=== PATIENT | female | born 1990 | race Caucasian/White ===

== ENCOUNTER 2020-06-07 06:53 | Outpatient (REF) | payer OTHER, SELFPAY ==
[2020-06-07 08:33] LABS: Creatinine Urine 51.49 mg/dL; Microalbumin Urine < 5.0 mg/L
[2020-06-07 09:14] LABS: Anion Gap 13 (12-20); Blood Urea Nitrogen 8 mg/dL (9-16); Calcium 8.5 mg/dL (8.4-10.2); Carbon Dioxide 26 mmol/L (22-29); Chloride 103 mmol/L (96-108); Cholesterol 143 mg/dL; Estimated Glomerular Filt Rate > 60; Glucose Fasting 103 mg/dL (60-99); HDL Cholesterol 68 mg/dL; LDL Cholesterol Calculated 66 mg/dl; Potassium 4.7 mmol/l (3.3-5.1); Sodium 137 mmol/L (135-145); Triglycerides 48 mg/dL
== END 2020-06-07 06:54 | disposition home or self-care (01) ==
LOC: HO.LAB 06:53
PROVIDERS: PCP Physician Assistant; Visit Provider Nurse Practitioner Gerontology
DX: E10.9 Type 1 diabetes mellitus without complications (principal)
CPT/HCPCS: 80048; 80061; 82043

== ENCOUNTER → 2020-06-09 11:37 | Outpatient (BNVA) | payer OTHER, SELFPAY | PROVIDERS: PCP Physician Assistant; Referring Provider Physician Assistant; Visit Provider Nurse Practitioner Gerontology | DX: Z76.89 Persons encountering health services in other specified circumstances (principal) ==

== ENCOUNTER → 2020-06-30 11:44 | Outpatient (BNVA) | payer OTHER, SELFPAY | PROVIDERS: PCP Physician Assistant; Referring Provider Physician Assistant; Visit Provider Dietitian, Registered | DX: Z76.89 Persons encountering health services in other specified circumstances (principal) ==

== ENCOUNTER 2020-08-08 14:09 | Outpatient (REF) | payer OTHER, SELFPAY ==
[2020-08-09 09:33] LABS: BV Int Neg Control Negative (Negative); BV Int Pos Control Positive (Positive)
[2020-08-10 01:22] LABS: C. trachomatis RNA TMA NOT DETECTED (NOT DETECTED); N. gonorrhoeae RNA TMA NOT DETECTED (NOT DETECTED)
== END 2020-08-08 14:10 | disposition home or self-care (01) ==
LOC: HO.LAB 14:09
PROVIDERS: PCP Physician Assistant; Visit Provider Advanced Practice Midwife
DX: Z12.4 Encounter for screening for malignant neoplasm of cervix (principal); E10.43 Type 1 diabetes mellitus with diabetic autonomic (poly)neuropathy; E10.65 Type 1 diabetes mellitus with hyperglycemia; K31.84 Gastroparesis
CPT/HCPCS: 36415; 87480; 87491; 87510; 87591; 87660; 88141; 88142

== ENCOUNTER → 2020-11-22 13:22 | Outpatient (BNVA) | payer OTHER, SELFPAY | PROVIDERS: PCP Physician Assistant; Visit Provider Nurse Practitioner Gerontology ==

== ENCOUNTER → 2020-11-23 14:03 | Outpatient (BNVA) | payer OTHER, SELFPAY | PROVIDERS: PCP Physician Assistant; Visit Provider Nurse Practitioner Gerontology ==

== ENCOUNTER 2020-12-27 07:38 | Outpatient (REF) | payer OTHER, SELFPAY ==
[2020-12-27 08:23] LABS: Hemoglobin 11.2 g/dl (12.0-16.0); Mean Corpuscular HGB Conc 31.1 g/dl (31.0-35.0); Mean Corpuscular Hemoglobin 25.5 pg (27.0-33.0); Mean Platelet Volume 10.6 fL (9.4-12.3); Platelet Count 394 X10*3/uL (160-400); Red Blood Count 4.39 X10*6/uL (4.20-5.50); Red Cell Distribution Width 15.9 % (11.0-16.0); White Blood Count 5.5 X10*3/uL (4.8-10.8)
[2020-12-27 08:33] LABS: Estimated Average Glucose 220 mg/dL; Hemoglobin A1c % 9.3 %
[2020-12-27 08:57] LABS: Alanine Aminotransferase 20 U/L (0-31); Albumin Level 4.4 g/dL (3.5-5.0); Alkaline Phosphatase 66 U/L (39-117); Anion Gap 11 (12-20); Aspartate Amino Transferase 21 U/L (5-31); Bilirubin Total 0.8 mg/dL (0.0-1.0); Blood Urea Nitrogen 10 mg/dL (9-16); Calcium 9.8 mg/dL (8.4-10.2); Carbon Dioxide 27 mmol/L (22-29); Chloride 105 mmol/L (96-108); Cholesterol 178 mg/dL; Estimated Glomerular Filt Rate > 60; Glucose Fasting 116 mg/dL (60-99); HDL Cholesterol 90 mg/dL; LDL Cholesterol Calculated 78 mg/dl; Potassium 4.1 mmol/L (3.3-5.1); Sodium 139 mmol/L (135-145); Total Protein 6.7 g/dL (6.5-8.0); Triglycerides 53 mg/dL
[2020-12-27 08:58] LABS: TSH reflex Free T4 0.82 uIU/mL (0.32-4.0)
[2020-12-27 09:36] LABS: Creatinine Urine 67.69 mg/dL; Microalbumin Urine < 5.0 mg/L
== END 2020-12-27 07:39 | disposition home or self-care (01) ==
LOC: HO.LAB 07:38
PROVIDERS: Absent Provider Physician Assistant; PCP Physician Assistant; Visit Provider Nurse Practitioner Gerontology
DX: E10.43 Type 1 diabetes mellitus with diabetic autonomic (poly)neuropathy (principal); E10.65 Type 1 diabetes mellitus with hyperglycemia; K31.84 Gastroparesis; I10 Essential (primary) hypertension
CPT/HCPCS: 36415; 80053; 80061; 82043; 83036; 84443; 85027

== ENCOUNTER → 2021-01-03 10:33 | Outpatient (BNVA) | payer OTHER, SELFPAY | PROVIDERS: PCP Physician Assistant; Visit Provider Nurse Practitioner Gerontology | DX: E10.65 Type 1 diabetes mellitus with hyperglycemia (principal); E10.43 Type 1 diabetes mellitus with diabetic autonomic (poly)neuropathy; K31.84 Gastroparesis | CPT/HCPCS: 82947; 99212 ==

== ENCOUNTER → 2021-03-22 14:38 | Outpatient (BNVA) | payer OTHER, SELFPAY | PROVIDERS: PCP Physician Assistant; Visit Provider Nurse Practitioner Gerontology ==

== ENCOUNTER → 2021-05-10 14:30 | Outpatient (BNVA) | payer OTHER, SELFPAY | PROVIDERS: PCP Physician Assistant; Visit Provider Nurse Practitioner Gerontology | DX: E10.65 Type 1 diabetes mellitus with hyperglycemia (principal); E10.43 Type 1 diabetes mellitus with diabetic autonomic (poly)neuropathy; K31.84 Gastroparesis | CPT/HCPCS: 82947; 99212 ==

== ENCOUNTER 2021-06-08 15:37 | Outpatient (REF) | payer OTHER, SELFPAY ==
[2021-06-08 16:47] LABS: Anion Gap 12 (12-20); Blood Urea Nitrogen 8 mg/dL (9-16); C Reactive Protein 0.03 mg/dL (< or = 0.50); Calcium 9.5 mg/dL (8.4-10.2); Carbon Dioxide 23 mmol/L (22-29); Chloride 103 mmol/L (96-108); Estimated Glomerular Filt Rate > 60; Glucose Random 229 mg/dL (60-115); Potassium 4.3 mmol/L (3.3-5.1); Sodium 134 mmol/L (135-145)
[2021-06-08 17:18] LABS: Erythrocyte Sedimentation Rate 3 MM/HR (0-20)
[2021-06-09 10:31] LABS: Lyme Abs Screen <0.90 index
== END 2021-06-08 15:38 | disposition home or self-care (01) ==
LOC: HO.LAB 15:37
PROVIDERS: PCP Physician Assistant; Visit Provider Physician Assistant
DX: M62.81 Muscle weakness (generalized) (principal); W57.XXXA Bitten or stung by nonvenomous insect and other nonvenomous arthropods, initial encounter
CPT/HCPCS: 36415; 80048; 82550; 85652; 86140; 86617; 86618

== ENCOUNTER → 2021-08-22 15:01 | Outpatient (BNVA) | payer OTHER, SELFPAY | PROVIDERS: Visit Provider Advanced Practice Midwife | DX: Z32.01 Encounter for pregnancy test, result positive (principal); O24.019 Pre-existing type 1 diabetes mellitus, in pregnancy, unspecified trimester; E10.43 Type 1 diabetes mellitus with diabetic autonomic (poly)neuropathy; K31.84 Gastroparesis; E10.42 Type 1 diabetes mellitus with diabetic polyneuropathy; E10.65 Type 1 diabetes mellitus with hyperglycemia; Z3A.00 Weeks of gestation of pregnancy not specified; Z79.4 Long term (current) use of insulin; Z96.41 Presence of insulin pump (external) (internal) | CPT/HCPCS: 81025; 99212 ==

== ENCOUNTER 2021-09-01 13:38 | Outpatient (REF) | payer OTHER, SELFPAY ==
--- NOTE | ~2021-09-01 | US_ITS ---
EXAMINATION: OBSTETRICAL ULTRASOUND, FIRST TRIMESTER HISTORY: 31-year-old with unknown LMP Type 1 diabetes COMPARISON: None TECHNIQUE: Real time transabdominal imaging with color and M-mode Doppler. FINDINGS: A single, live IUP CRL of 17 mm c/w 8.2wks is noted. Heart Rate: 174 beats per minute. Both maternal ovaries are seen and appear normal. GESTATIONAL AGE: 1. GA from LMP: N/A wks 2. GA from AUA: 8.2 wks ESTIMATED DATE OF DELIVERY: 1. MINOR from LMP: N/A 2. MINOR from AUA: 04/11/2022 US/US OB <= 14 weeks fetus IMPRESSION: 1. A single live IUP 2. CRL consistent with 8.2 weeks with MINOR of 04/11/2022 3. Normal ovaries
== END 2021-09-01 13:39 | disposition home or self-care (01) ==
LOC: HO.US 13:38
PROVIDERS: PCP Physician Assistant; Visit Provider Advanced Practice Midwife
DX: O24.011 Pre-existing type 1 diabetes mellitus, in pregnancy, first trimester (principal); E10.43 Type 1 diabetes mellitus with diabetic autonomic (poly)neuropathy; E10.65 Type 1 diabetes mellitus with hyperglycemia; Z3A.01 Less than 8 weeks gestation of pregnancy
CPT/HCPCS: 76801

== ENCOUNTER → 2021-09-04 11:33 | Outpatient (BNVA) | payer OTHER, SELFPAY | PROVIDERS: Visit Provider Nurse Practitioner Gerontology | DX: E10.65 Type 1 diabetes mellitus with hyperglycemia (principal); E10.43 Type 1 diabetes mellitus with diabetic autonomic (poly)neuropathy; K31.84 Gastroparesis; O24.011 Pre-existing type 1 diabetes mellitus, in pregnancy, first trimester; Z79.4 Long term (current) use of insulin; Z96.41 Presence of insulin pump (external) (internal) | CPT/HCPCS: 82947; 83036; 99212 ==

== ENCOUNTER → 2021-09-07 11:13 | Outpatient (BNVA) | payer OTHER, SELFPAY | PROVIDERS: Visit Provider Advanced Practice Midwife ==

== ENCOUNTER 2023-10-23 14:37 | Outpatient (AMB) | payer OTHER, SELFPAY ==
[2023-10-23 14:40] VITALS: BP 112/68; PULSE 88; BMI 20.4
--- NOTE | 2023-10-23 14:40 | A.OFFPC_ITS ---
Vital Signs 10/23/23 14:40 Height 5 ft 9 in Weight 138 lb BMI 20.4 BP 112/68 Blood Pressure Location Lt brachial Position Sitting Pulse 88 Pulse Source Pulse Oximeter Oxygen Delivery Method Room Air Intake Visit Reasons: annual exam Intake Note: Patient is here today for a physical. 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 Accompanied by: Self / Same As Patient Is last menstrual period known: Yes Last menstrual period: 04/22/23 Patient : Yes (23 week gestation ) Allergies latex Allergy (Severe, Verified 10/23/23 15:05) Anaphylaxis - latex gloves hazelnut Allergy (Unknown, Verified 10/23/23 15:05) Anaphylaxis metoclopramide [From Reglan] Allergy (Unknown, Verified 10/23/23 15:05) Dystonia Sulfa (Sulfonamide Antibiotics) Allergy (Unknown, Verified 10/23/23 15:05) anaphylaxis Medication List - Last Reconciled 10/23/23 by Jame Da Silva PA-C albuterol sulfate 90 mcg/actuation (Ventolin HFA) 2 puffs PO Q6H 30 days blood pressure test kit-large As directed clonidine HCl 0.2 mg PO BID 90 days epinephrine (EpiPen 2-Ian) 0.3 mg (0.3 mL) IM Q10M PRN 30 days ferrous gluconate mg PO Humalog Min KwikPen U-100 (insulin lispro) up to 10 units subcut five times a day; 30 days NS insulin aspart U-100 (Novolog U-100 Insulin aspart) up to 125 units daily via pumpsubcut daily; 30 days insulin syringe-needle U-100 As directed multivitamin (Daily Multi-Vitamin tablet) 1 tab PO DAILY pen needle, diabetic (BD Ultra-Fine [employer] Needle) 1 ea subcut up to 7 times a day; 30 days pyridoxine (vitamin B6) (Vitamin B-6) 25 mg PO TID zolpidem 10 mg PO BEDTIME 30 days Tobacco use date assessed: 10/23/23 HPI annual exam HPI Details Patient is a 33-year-old female here today for an annual physical.? Patient has a past medical history significant for type 1 diabetes, generalized anxiety disorder, ADD. She currently again and is due in February of 2024, followed by [facility] Generalized anxiety disorder: Patient reports her anxiety is not well controlled. Previous on clonazepam does able to wean herself off. She is now speaking with a mental health therapist she really likes and was given the diagnosis of major depressive disorder, generalized anxiety and ADD to which she believes is a constant cause of her anxiety. She is now speaking with a mental health therapist and has a new psychiatrist whom has been working with her. They have started Vyvanse for her ADD which has helped her tremendously though is now off of this medication due to . .. Type 1 diabetes complicated by gastroparesis: Now well controlled, today's A1c is 6.4. Seems her diabetes stabilizes when she is ? . Continues to follow [facility] endocrinology, has had history of hospital admissions for DKA . Her diabetes is complicated by gastroparesis which often leaves her with nausea vomiting and inability to gain much weight. She does attribute some of her gastroparesis to her mental health disorder as well. Did have a previous gastric stimulator in place. Vaccines: Up-to-date with tetanus vaccine, pneumonia vaccine. [facility] Medical History (Updated 10/24/23 @ 07:41 by Jame Da Silva PA-C) depression Cervical cancer screening Type 2 diabetes mellitus with diabetic neuropathy, unspecified Anxiety Depression Fibromyalgia Asthma Surgical History History of tooth extraction History of exploratory laparotomy History of gastric surgery History of D&C History of appendectomy Family History Father No problems noted. Mother Heart problem Brother Autism Maternal Aunt Breast cancer Other Mental health disorder Social History Household Members: Significant Other Housing: House Alcohol intake: never Patient Tobacco Use Status: Former Tobacco user Tobacco use type: Cigarette e-Cigarette/Vaping Use: Never Used Second Hand Smoke Exposure: Yes Substance Use Type: Marijuana service: No Current occupational status: unemployed and disabled Gender identity: Female Cognitive needs: No Hearing needs: No Vision needs: Yes Female Reproductive History Menstrual Age of Menarche: 16 Date of last menstrual period: 04/22/23 Questionnaire PHQ-9 Over the last 2 weeks, how often have you been bothered by any of the following problems? 1. Little interest or pleasure in doing things: more than half the days 2. Feeling down, depressed, or hopeless: more than half the days 3. Trouble falling or staying asleep, or sleeping too much: nearly every day 4. Feeling tired or having little energy: nearly every day 5. Poor appetite or overeating: nearly every day 6. Feeling bad about yourself - or that you are a failure or have let yourself or your family down: more than half the days 7. Trouble concentrating on things, such as reading the newspaper or watching television: nearly every day 8. Moving or speaking so slowly that other people could have noticed. Or the opposite - being so fidgety or restless that you have been moving around a lot more than usual: more than half the days 9. Thoughts that you would be better off or of hurting yourself in some way: not at all Total score: 20 Depression Screening Interpretation: Positive Depression Screening Follow-up: Existing condition Depression Screening Done: Yes 09774 - PHQ-9 Billing: Yes Source: Developed by Drs. Evans Bose, Maye Byrd, Catracho Sullivan and colleagues, with an educational renny from [employer]. Thrive Questionnaire Date Thrive assessed: 10/23/23 I am a: Patient What is your living situation today?: I have a steady place to live Within the past 12 months, did the food you bought not last and you didn't have the money to get more?: Never true Within the past 12 months, did you worry whether your food would run out before you got money to buy more?: Never true Do you have trouble paying for medicines?: No Do you have trouble getting transportation to medical appointments?: No Do you have trouble paying your heating and electricity bill?: No Do you have trouble taking care of your child, family member or friend?: No Do you have trouble with day-to-day activities such as bathing, preparing meals, shopping, managing finances, etc.?: No Are you currently unemployed and looking for a job?: No Are you interested in more education?: No Please select the resources that you would like help with: None Currently or been in a relationship where the following occur: no concerns reported THRIVE Score: 0 AUDIT C Alcohol Use Questionnaire (AUDIT-C) 1. How often do you have a drink containing alcohol?: Never 3. How often do you have six or more drinks on one occasion?: Never Total Score: 0 CLEMENT-7 AMB Questionnaire CLEMENT-7 Date CLEMENT - 7 assessed: 10/23/23 Feeling nervous, anxious, or on edge: 3 = Nearly every day Not being able to stop or control worryin = Nearly every day Worrying too much about different things: 3 = Nearly every day Trouble relaxin = Nearly every day Being so restless that it is hard to sit still: 3 = Nearly every day Becoming easily annoyed or irritable: 3 = Nearly every day Feeling afraid as if something awful might happen: 3 = Nearly every day Total CLEMENT-7 score (0-4 normal; 5-9 mild; 10-14 moderate; 15-21 severe): 21 Source: Developed by Drs. Evans Bose, Maye Byrd, Catracho Sullivan and colleagues, with an educational renny from [employer]. CLEMENT-7 Assessment Billing CLEMENT-7 Assessment Tool: CLEMENT-7 Assessment [id number] Review of Systems Const Denies body aches, Denies chills, Denies excessive sweating, Denies fatigue, Denies fever(s) and Denies headache(s) Eyes Denies blurry vision ENT Denies dysphagia, Denies vertigo, Denies dizziness, Denies headache(s), Denies hearing loss and Denies tinnitus Card Denies chest pain, Denies chest pain with activity, Denies syncope, Denies irregular heart rhythm and Denies dyspnea Resp Denies chest congestion, Denies cough, Denies hemoptysis, Denies dyspnea and Denies wheezing GI Denies abdominal pain, Denies melena, Denies hematochezia, Denies coffee ground emesis, Denies dysphagia, Denies diarrhea, Denies nausea and Denies vomiting Denies urinary frequency, Denies dysuria, Denies urinary hesitancy and Denies urinary urgency Musc Denies arthralgias, Denies limited range of motion, Denies muscle cramps and Denies muscle weakness Skin/Breast Denies rash and Denies skin ulcer Neuro Denies Abnormal speech present, Denies confusion, Denies vertigo, Denies dizziness, Denies syncope, Denies headache(s), Denies memory loss and Denies seizure-like activity Psych Denies anxiety, Denies confusion, Denies depression, Denies memory loss, Denies panic attacks and Denies paranoia Endo Denies excessive sweating, Denies fatigue, Denies flushing, Denies polydipsia and Denies polyuria Aller/Immun Denies wheezing Physical exam (Primary Care) Vital Signs: Last Vital Signs Pulse 88 10/23/23 14:40 BP 112/68 10/23/23 14:40 Oxygen Delivery Method Room Air 10/23/23 14:40 BMI result Body Mass Index 20.4 Tobacco/Smoking Status: Tobacco use Status Tobacco use date assessed 10/23/23 10/23/23 14:59 Patient Tobacco Use Status Former Tobacco user 10/23/23 14:42 Tobacco use type Cigarette 10/23/23 14:42 e-Cigarette/Vaping Use Never Used 10/23/23 14:42 PHQ-9: PHQ-9 Score PHQ-9: Total score 20 10/23/23 15:24 Depression Screening Interpretation: Positive Depression Screening Follow-up: Existing condition Thrive Assessment: Date of Thrive Assessment Date Thrive assessed 10/23/23 10/23/23 14:59 Currently or been in a relationship where the following occur: no concerns reported Const General: cooperative, comfortable, no acute distress, alert and awake; No confusion Orientation/consciousness: oriented to person, oriented to place, patient oriented x3 and No confusion HENMT Head: Yes normocephalic Ears: external ears normal and TM's normal bilaterally Face and sinus: No sinus tenderness Mouth: Normal oral and palatal mucosa present and tongue normal Teeth and gingiva: dentition normal and gingiva normal Throat: Yes posterior oropharynx normal, Yes tonsils normal and Yes uvula midline Eyes Conjunctivae: conjunctivae normal Sclerae: sclerae normal Pupils: Equal, round and reactive pupils present EOM: EOMs intact bilaterally Direct Ophthalmoscopy: No no photophobia Neck Neck: Yes no lymphadenopathy, No tender and Yes no JVD Thyroid: Thyroid normal Carotids: no bruits Chest Chest palpation & inspection: no tenderness Resp Effort & Inspection: normal respiratory effort, no audible wheezes, not labored and no stridor Auscultation: no crackles, no rales, no rhonchi and no wheezes Cardio Jugular venous distension: no JVD Rate: regular rate, not bradycardic and not tachycardic Rhythm: regular rhythm Bruits: no carotid bruits Peripheral pulses: Peripheral pulses 2+ throughout GI Inspection: Yes normal to inspection, No abdominal wall ecchymosis and No visible herniation Palpation (GI): Soft to palpation, nontender, no guarding, not rigid and No hepatosplenomegaly present Auscultation: normoactive bowel sounds General: Yes no CVA tenderness Back/Spine/Pelvis Back: no CVA tenderness and No back tenderness Cervical Spine: cervical ROM normal Thoracic/Lumbar Spine: thoracic and lumbar spine normal to inspection, straight leg raise negative bilaterally, No thoraco-lumbar ROM limited and No lumbar spinal tenderness Skin Lesions: no lesions Rashes: no rashes Wounds: no wounds Neuro General: oriented to person, oriented to place, patient oriented x3, CN's II-XI intact bilaterally and No confusion Cranial nerves: Yes Equal, round and reactive pupils present and Yes Normal accommodation reflex present Cognition (Neuro): normal cognition Speech: No Abnormal speech present Gait exam (Neuro): Normal gait present Motor exam (neuro): 5/5 motor strength present throughout Extrem Right upper extremity: full ROM; no cyanosis Left upper extremity: full ROM; no cyanosis Right lower extremity: no edema Left lower extremity: no edema Psych Appearance: grossly normal Mental Status: mental status grossly normal Affect: normal affect Attitude: cooperative Thought process: Normal thought process present Results AMB Hemoglobin A1c AMB Hemoglobin A1c 6.4 % Last Edit by ROMEO Mcfarlane on 10/23/23 15:24 Results Reviewed Results Reviewed: Laboratory Last Values Hgb A1c (Clinic) 6.4 % (4.0-6.0) H 10/23/23 15:04 Assessment and Plan Assessment & Plan (1) Annual physical exam: Code(s): Z00.00 - Encounter for general adult medical examination without abnormal findings (2) 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 Continues on insulin pump , today's A1c is 6.4 Interestingly enough Diabetes seems to be better controlled when . Her type 1 diabetes is complicated by gastroparesis and did have a previous gastric stimulator and though was not helpful. She does often get abdominal pain, bloating and nausea which causes her not to be able to gain weight. She eats small frequent meals to keep control of her glucose. (3) ADHD: Code(s): F90.9 - Attention-deficit hyperactivity disorder, unspecified type Qualifiers: Attention deficit-hyperactivity disorder type: combined inattentive- hyperactive Qualified Code(s): F90.2 - Attention-deficit hyperactivity disorder, combined type Plan: Now followed by mental health med provider and was started on Vyvanse which drastically reduced her lack of attention and focus and actually helped her with her depression and anxiety. Now off of stimulant ADHD medication due to . Plans on returning to Vyvanse after (4) CLEMENT (generalized anxiety disorder): Code(s): F41.1 - Generalized anxiety disorder Plan: Patient's CLEMENT-7 score positive for moderate to severe anxiety which has been a longstanding existing condition for her. She has a daily panic attack. She uses clonidine with good effect, was on clonazepam and many different SSRIs in the past without complete resolution of her anxiety. She is now speaking with a mental health therapist which is helping a lot. (5) Bipolar disorder: Code(s): F31.9 - Bipolar disorder, unspecified Qualifiers: Active/Remission status: in partial remission Most recent bipolar episode type: depressed Qualified Code(s): F31.75 - Bipolar disorder, in partial remission, most recent episode depressed Plan: Patient followed by mental therapist and a psychiatrist. Her mental health has been fairly stable. Has a good partner is currently and due in February of 2024 (6) Insomnia: Code(s): G47.00 - Insomnia, unspecified Qualifiers: Insomnia type: unspecified Qualified Code(s): G47.00 - Insomnia, unspecified Plan: Patient continues with the use of zolpidem 10 mg on a nightly basis with good effect on her sleep. 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
== END 2023-10-23 15:23 | disposition home or self-care (01) ==
PROVIDERS: PCP Physician Assistant; Visit Provider Physician Assistant
DX: E10.43 Type 1 diabetes mellitus with diabetic autonomic (poly)neuropathy (principal); K31.9 Disease of stomach and duodenum, unspecified
CPT/HCPCS: 83036; 99395

== ENCOUNTER 2024-03-30 14:20 | Outpatient (AMB) | payer OTHER, SELFPAY ==
--- NOTE | 2024-03-30 14:26 | A.OFFPC_ITS ---
Vital Signs 03/30/24 14:34 Height 5 ft 9 in Weight 123 lb 3 oz BMI 18.2 BP 120/72 Blood Pressure Location Lt brachial Position Sitting Pulse 90 Pulse Source Pulse Oximeter Pulse Oximetry (%) 100 Oxygen Delivery Method Room Air Intake Visit Reasons: f/u DMII Staff Cytotechnologist Required: No Accompanied by: Son Allergies latex Allergy (Severe, Verified 03/30/24 14:34) Anaphylaxis - latex gloves hazelnut Allergy (Unknown, Verified 03/30/24 14:34) Anaphylaxis metoclopramide [From Reglan] Allergy (Unknown, Verified 03/30/24 14:34) Dystonia Sulfa (Sulfonamide Antibiotics) Allergy (Unknown, Verified 03/30/24 14:34) anaphylaxis Medication List - Last Reconciled 03/30/24 by Jame Da Silva PA-C albuterol sulfate 90 mcg/actuation (Ventolin HFA) 2 puffs PO Q6H 30 days blood pressure test kit-large As directed clonidine HCl 0.2 mg PO BID 30 days epinephrine (EpiPen 2-Ian) 0.3 mg (0.3 mL) IM Q10M PRN 30 days ferrous gluconate mg PO Humalog Min KwikPen U-100 (insulin lispro) up to 10 units subcut five times a day; 30 days NS insulin aspart U-100 (Novolog U-100 Insulin aspart) up to 125 units daily via pumpsubcut daily; 30 days insulin syringe-needle U-100 As directed multivitamin (Daily Multi-Vitamin tablet) 1 tab PO DAILY pen needle, diabetic (BD Ultra-Fine [employer] Needle) 1 ea subcut up to 7 times a day; 30 days pyridoxine (vitamin B6) (Vitamin B-6) 25 mg PO TID zolpidem 10 mg PO BEDTIME 30 days Tobacco use date assessed: 10/23/23 Dental Screening Dental Screen Date: 03/30/24 Did you have a dental visit in the last 12 months?: Yes Did you have a dental problem in the last 6 months where you did not have access to dental care?: No Was dental information given to patient?: Patient has dentist HPI f/u DMII HPI Details Patient is a 33-year-old female here today for follow-up visit.? Patient has a past medical history significant for type 1 diabetes, generalized anxiety disorder, ADD. Recently had a new baby boy in December. There were some complications though currently doing fairly well. She is suffering with pretty bad depression. Has been on Zoloft in the past for depression though had aurelia with the medication. PLAN: Was on Vyvanse in the past for her ADD which did help her with her attention and focus on task. We did discuss that Vyvanse may help her up lift her mood and be more productive as a mother. She is not breast-feeding at this time. '' CHRONIC MEDICAL CONDITIONS-- > Generalized anxiety disorder: Patient reports her anxiety is not well controlled. Previous on clonazepam does able to wean herself off. She is now speaking with a mental health therapist she really likes and was given the diagnosis of major depressive disorder, generalized anxiety and ADD to which she believes is a constant cause of her anxiety. She is now speaking with a mental health therapist and has a new psychiatrist whom has been working with her. They have started Vyvanse for her ADD which has helped her tremendously. .. Type 1 diabetes complicated by gastroparesis: Patient's type 1 diabetes fairly well controlled, today's A1c is 7.1 Continues to follow [facility] endocrinology, has had history of hospital admissions for DKA . Her diabetes is complicated by gastroparesis which often leaves her with nausea vomiting and inability to gain much weight. She does at tribute some of her gastroparesis to her mental health disorder as well. Did have a previous gastric stimulator in place. [facility], [facility] Medical History (Updated 03/30/24 @ 16:39 by Jame Da Silva PA-C) depression Cervical cancer screening Type 2 diabetes mellitus with diabetic neuropathy, unspecified Anxiety Depression Fibromyalgia Asthma Surgical History History of tooth extraction History of exploratory laparotomy History of gastric surgery History of D&C History of appendectomy Family History Father No problems noted. Mother Heart problem Brother Autism Maternal Aunt Breast cancer Other Mental health disorder Social History Household Members: Significant Other Housing: House Alcohol intake: never Patient Tobacco Use Status: Former Tobacco user Tobacco use type: Cigarette e-Cigarette/Vaping Use: Never Used Second Hand Smoke Exposure: Yes Substance Use Type: Marijuana service: No Current occupational status: unemployed and disabled Gender identity: Female Cognitive needs: No Hearing needs: No Vision needs: Yes Female Reproductive History Menstrual Age of Menarche: 16 Questionnaire Thrive Questionnaire Date Thrive assessed: 10/23/23 CLEMENT-7 AMB Questionnaire CLEMENT-7 Date CLEMENT - 7 assessed: 10/23/23 Source: Developed by Drs. Evans Bose, Maye Byrd, Catracho Sullivan and colleagues, with an educational renny from [employer]. Review of Systems Const Denies headache(s) Eyes Denies loss of vision ENT Denies vertigo, Denies dizziness, Denies headache(s) and Denies sore throat Card Denies chest pain, Denies leg edema and Denies lightheadedness Resp Denies cough, Denies hemoptysis and Denies wheezing GI Denies abdominal pain, Denies melena, Denies constipation, Denies diarrhea and Denies vomiting Denies urinary frequency, Denies dysuria and Denies urinary urgency Musc Denies arthralgias, Denies joint swelling, Denies numbness and Denies tingling Neuro Denies Abnormal speech present, Denies behavioral changes, Denies vertigo, Denies dizziness, Denies headache(s), Denies loss of vision, Denies memory loss, Denies numbness and Denies tingling Psych Reports anxiety, Denies behavioral changes, Reports depression, Reports difficulty concentrating, Reports irritability, Denies memory loss and Denies panic attacks Zurdo/Lymph Denies easy bleeding and Denies easy bruising Aller/Immun Denies wheezing Physical exam (Primary Care) Vital Signs: Last Vital Signs Pulse 90 03/30/24 14:34 BP 120/72 03/30/24 14:34 Pulse Ox 100 03/30/24 14:34 Oxygen Delivery Method Room Air 03/30/24 14:34 BMI result Body Mass Index 18.2 Tobacco/Smoking Status: Tobacco use Status Tobacco use date assessed 10/23/23 03/30/24 14:26 Patient Tobacco Use Status Former Tobacco user 03/30/24 14:26 Tobacco use type Cigarette 03/30/24 14:26 e-Cigarette/Vaping Use Never Used 03/30/24 14:26 Thrive Assessment: Date of Thrive Assessment Date Thrive assessed 10/23/23 03/30/24 14:26 Const General: healthy appearing, no acute distress, alert and awake Nutritional Appearance: well nourished Orientation/consciousness: oriented to person, oriented to place and oriented to time HENMT Ears: TM's normal bilaterally General nose exam: Normal nasal mucous membranes and turbinates present Eyes Conjunctivae: conjunctivae normal Sclerae: sclerae normal Pupils: Equal, round and reactive pupils present Neck Neck: Yes no lymphadenopathy and Yes no JVD Thyroid: Thyroid normal Carotids: no bruits Resp Effort & Inspection: normal respiratory effort and not tachypneic Auscultation: no crackles, no rales, no rhonchi and no wheezes Cardio Rate: regular rate Rhythm: regular rhythm Heart sounds: no murmurs and normal S1 and S2 GI Palpation (GI): Soft to palpation, nontender, no hepatomegaly and no splenomegaly Auscultation: normal bowel sounds Skin General skin exam: no rashes or lesions noted and dry skin Neuro General: oriented to person, oriented to place and oriented to time Cranial nerves: Yes Equal, round and reactive pupils present Speech: No Abnormal speech present Gait exam (Neuro): Normal gait present Motor exam (neuro): no tremor noted Extrem Right upper extremity: full ROM Left upper extremity: full ROM Right lower extremity: full ROM; no edema Left lower extremity: full ROM; no edema Psych Mental Status: mental status grossly normal Speech and movement: Normal speech and movement present Affect: normal affect Attitude: cooperative Thought process: Normal thought process present Results AMB Hemoglobin A1c AMB Hemoglobin A1c 7.1 % Last Edit by ROMEO Mcfarlane on 03/30/24 14:37 Results Reviewed Results Reviewed: Laboratory Last Values Hgb A1c (Clinic) 7.1 % (4.0-6.0) H 03/30/24 14:26 Assessment and Plan Assessment & Plan (1) depression: Code(s): F53.0 - depression Plan: Patient reports having some pretty severe depression over the last few weeks. She is speaking with a mental health therapist on a weekly basis. Her mental health med provider is out on maternity leave as well. Rochelle Did not do well with SSRIs as she did become somewhat manic on them. Of note she did quite well with Vyvanse for her ADD which may up lift her mood and she is willing to restart this medication for he ADD. 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 Continues on insulin pump , today's A1c is 7.1 . (3) ADHD: Code(s): F90.9 - Attention-deficit hyperactivity disorder, unspecified type Qualifiers: Attention deficit-hyperactivity disorder type: combined inattentive- hyperactive Qualified Code(s): F90.2 - Attention-deficit hyperactivity disorder, combined type Plan: As above Orders: Orders AMB Hemoglobin A1c Today E10.43 - Type 1 diabetes mellitus with diabetic autonomic (poly)neuropathy, K31.9 - Disease of stomach and duodenum, unspecified Complete Blood Count no Diff Today E10.43 - Type 1 diabetes mellitus with diabetic autonomic (poly)neuropathy, K31.9 - Disease of stomach and duodenum, unspecified Lipid Panel Today E10.43 - Type 1 diabetes mellitus with diabetic autonomic (poly)neuropathy, K31.9 - Disease of stomach and duodenum, unspecified Comprehensive Zahl. Panel Fast Today E10.43 - Type 1 diabetes mellitus with diabetic autonomic (poly)neuropathy, K31.9 - Disease of stomach and duodenum, unspecified Microalbumin, Random (w Creat) Today E10.43 - Type 1 diabetes mellitus with diabetic autonomic (poly)neuropathy, K31.9 - Disease of stomach and duodenum, unspecified Medications: New lisdexamfetamine (Vyvanse) Partial Fill upon patient request. 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
[2024-03-30 14:34] VITALS: BP 120/72; PULSE 90; O2SAT 100; BMI 18.2
== END 2024-03-30 15:01 | disposition home or self-care (01) ==
PROVIDERS: PCP Physician Assistant; Visit Provider Physician Assistant
DX: E10.43 Type 1 diabetes mellitus with diabetic autonomic (poly)neuropathy (principal); F53.0 Postpartum depression; K31.9 Disease of stomach and duodenum, unspecified; F90.2 Attention-deficit hyperactivity disorder, combined type
CPT/HCPCS: 83036; 99214

== ENCOUNTER 2024-06-02 14:36 | Outpatient (AMB) | payer OTHER, SELFPAY ==
[2024-06-02 14:43] VITALS: BP 122/70; PULSE 80; O2SAT 99; BMI 18.2
--- NOTE | 2024-06-02 14:43 | A.OFFPC_ITS ---
Vital Signs 06/02/24 14:43 Height 5 ft 9 in Weight 123 lb 6 oz BMI 18.2 BP 122/70 Blood Pressure Location Lt brachial Position Sitting Pulse 80 Pulse Source Pulse Oximeter Pulse Oximetry (%) 99 Oxygen Delivery Method Room Air Intake Visit Reasons: f/u ADHD Social Work Supervisor Required: No Accompanied by: Self / Same As Patient Allergies latex Allergy (Severe, Verified 06/02/24 14:49) Anaphylaxis - latex gloves hazelnut Allergy (Unknown, Verified 06/02/24 14:49) Anaphylaxis metoclopramide [From Reglan] Allergy (Unknown, Verified 06/02/24 14:49) Dystonia Sulfa (Sulfonamide Antibiotics) Allergy (Unknown, Verified 06/02/24 14:49) anaphylaxis Medication List - Last Reconciled 06/02/24 by Jame Da Silva PA-C albuterol sulfate 90 mcg/actuation (Ventolin HFA) 2 puffs PO Q6H 30 days blood pressure test kit-large As directed clonidine HCl 0.2 mg PO BID 30 days epinephrine (EpiPen 2-Ian) 0.3 mg (0.3 mL) IM Q10M PRN 30 days ferrous gluconate mg PO Humalog Min KwikPen U-100 (insulin lispro) up to 10 units subcut five times a day; 30 days NS insulin aspart U-100 (Novolog U-100 Insulin aspart) up to 125 units daily via pumpsubcut daily; 30 days insulin syringe-needle U-100 As directed lisdexamfetamine (Vyvanse) 20 mg PO DAILY 30 days multivitamin (Daily Multi-Vitamin tablet) 1 tab PO DAILY pen needle, diabetic (BD Ultra-Fine [employer] Needle) 1 ea subcut up to 7 times a day; 30 days pyridoxine (vitamin B6) (Vitamin B-6) 25 mg PO TID zolpidem 10 mg PO BEDTIME 30 days Tobacco use date assessed: 10/23/23 Dental Screening Dental Screen Date: 03/30/24 HPI f/u ADHD HPI Details Patient is a 33-year-old female here today for follow-up on her ADHD and depression. She recently had a new baby boy and was suffering with anxiety. She also was having a lot of difficulty with her attention and focus on daily living tasks. She most recently restarted on Vyvanse 20mg which has significantly helped her with her attention and focus and her mood. She will be reestablishing care with her psychiatrist next month as her psychiatrist his coming back from maternity leave. She reports her GI symptoms have worsened over the last month. She had a gastroparesis episode where she was sick for few days and ever since then it has not been the same. She does have a gastric stimulator and has been evaluated by her GI surgeon to which she reports they have her gastric stimulator on setting low and which should last the next 7-10 years. She does report use of ondansetron, promethazine have not been too effective. She does report Benadryl as effective though is difficult to keep down. We did discuss trying liquid Benadryl during her times of gastroparesis. Concern--> she does report a heart pounding feeling when exerting herself. We did discuss this may be due to her being a bit dehydrated. She does admit to not being able to drink water as it makes her feel that she has to vomit. She usually uses Gatorade. Also having some sharp upper chest pain during times of high anxiety. [facility] Medical History depression Cervical cancer screening Type 2 diabetes mellitus with diabetic neuropathy, unspecified Anxiety Depression Fibromyalgia Asthma Surgical History History of tooth extraction History of exploratory laparotomy History of gastric surgery History of D&C History of appendectomy Family History Father No problems noted. Mother Heart problem Brother Autism Maternal Aunt Breast cancer Other Mental health disorder Social History Household Members: Significant Other Housing: House Alcohol intake: never Patient Tobacco Use Status: Former Tobacco user Tobacco use type: Cigarette e-Cigarette/Vaping Use: Never Used Second Hand Smoke Exposure: Yes Substance Use Type: Marijuana service: No Current occupational status: unemployed and disabled Gender identity: Female Cognitive needs: No Hearing needs: No Vision needs: Yes Female Reproductive History Menstrual Age of Menarche: 16 Questionnaire Thrive Questionnaire Date Thrive assessed: 10/23/23 CLEMENT-7 AMB Questionnaire CLEMENT-7 Date CLEMENT - 7 assessed: 10/23/23 Source: Developed by Drs. Evans Bose, Maye Byrd, Catracho Sullivan and colleagues, with an educational renny from [employer]. Review of Systems Const Denies headache(s) Eyes Denies loss of vision ENT Denies vertigo, Denies dizziness, Denies headache(s) and Denies sore throat Card Reports chest pain, Denies leg edema, Denies lightheadedness and Reports palpitations Resp Denies cough, Denies hemoptysis and Denies wheezing GI Denies abdominal pain, Denies melena, Denies constipation, Reports GI cramping, Denies diarrhea, Reports nausea and Reports vomiting Denies urinary frequency, Denies dysuria and Denies urinary urgency Musc Denies arthralgias, Denies joint swelling, Denies numbness and Denies tingling Neuro Denies Abnormal speech present, Denies behavioral changes, Denies vertigo, Denies dizziness, Denies headache(s), Denies loss of vision, Denies memory loss, Denies numbness and Denies tingling Psych Denies anxiety, Denies behavioral changes, Denies depression, Denies memory loss and Denies panic attacks Endo Reports palpitations Zurdo/Lymph Denies easy bleeding and Denies easy bruising Aller/Immun Denies wheezing Physical exam (Primary Care) Vital Signs: Last Vital Signs Pulse 80 06/02/24 14:43 BP 122/70 06/02/24 14:43 Pulse Ox 99 06/02/24 14:43 Oxygen Delivery Method Room Air 06/02/24 14:43 BMI result Body Mass Index 18.2 Tobacco/Smoking Status: Tobacco use Status Tobacco use date assessed 10/23/23 06/02/24 14:43 Patient Tobacco Use Status Former Tobacco user 06/02/24 14:43 Tobacco use type Cigarette 06/02/24 14:43 e-Cigarette/Vaping Use Never Used 06/02/24 14:43 Thrive Assessment: Date of Thrive Assessment Date Thrive assessed 10/23/23 06/02/24 14:43 Const General: healthy appearing, no acute distress, alert and awake Nutritional Appearance: well nourished Orientation/consciousness: oriented to person, oriented to place and oriented to time HENMT Ears: TM's normal bilaterally General nose exam: Normal nasal mucous membranes and turbinates present Eyes Conjunctivae: conjunctivae normal Sclerae: sclerae normal Pupils: Equal, round and reactive pupils present Neck Neck: Yes no lymphadenopathy and Yes no JVD Thyroid: Thyroid normal Carotids: no bruits Resp Effort & Inspection: normal respiratory effort and not tachypneic Auscultation: no crackles, no rales, no rhonchi and no wheezes Cardio Rate: regular rate Rhythm: regular rhythm Heart sounds: no murmurs and normal S1 and S2 GI Palpation (GI): Soft to palpation, nontender, no hepatomegaly and no splenomegaly Auscultation: normal bowel sounds Skin General skin exam: no rashes or lesions noted and dry skin Neuro General: oriented to person, oriented to place and oriented to time Cranial nerves: Yes Equal, round and reactive pupils present Speech: No Abnormal speech present Gait exam (Neuro): Normal gait present Motor exam (neuro): no tremor noted Extrem Right upper extremity: full ROM Left upper extremity: full ROM Right lower extremity: full ROM; no edema Left lower extremity: full ROM; no edema Psych Mental Status: mental status grossly normal Speech and movement: Normal speech and movement present Affect: normal affect Attitude: cooperative Thought process: Normal thought process present Office Procedures Flu Questionnaire Does the patient have a severe egg allergy?: No Immunizations Fluarix Triv [id number] (PF) 45 mcg (15 mcg x 3)/0.5 mL IM syringe Performing Provider: Jame Da Silva PA-C [facility] [place] [facility] Documented (not given) by: ROMEO Mcfarlane on 06/02/24 14:48 Reason Not Given: Patient Refused Coding Level of Care Code Est Pt Level 4 (08089) Diagnoses Attention deficit hyperactivity disorder (ADHD), combined type F90.2 Attention deficit-hyperactivity disorder type: combined inattentive- hyperactive Gastroparesis K31.84 Assessment & Plan Assessment & Plan (1) ADHD: Code(s): F90.9 - Attention-deficit hyperactivity disorder, unspecified type Category: Medical Qualifiers: Attention deficit-hyperactivity disorder type: combined inattentive- hyperactive Qualified Code(s): F90.2 - Attention-deficit hyperactivity disorder, combined type Plan: As per HPI patient reports her ADHD has been fairly well controlled with Vyvanse. Will discuss up titrating dose with her psychiatrist (2) Gastroparesis: Code(s): K31.84 - Gastroparesis Category: Medical Plan: Rochelle reports having some gastroparesis episodes lately. Unclear what has been the cause. She will try liquid Benadryl to help her symptoms. Orders: Orders Comprehensive Met. Panel 06/02/24 E10.43 - Type 1 diabetes mellitus with diabetic autonomic (poly)neuropathy, K31.9 - Disease of stomach and duodenum, unspecified Influenza [id number] Immunization 06/02/24 Z23 - Encounter for immunization
== END 2024-06-02 15:05 | disposition home or self-care (01) ==
PROVIDERS: PCP Physician Assistant; Visit Provider Physician Assistant
DX: K31.84 Gastroparesis (principal); F90.2 Attention-deficit hyperactivity disorder, combined type

== ENCOUNTER → 2024-06-02 14:36 | Outpatient (BNVA) | payer OTHER, SELFPAY | PROVIDERS: PCP Physician Assistant; Visit Provider Physician Assistant | DX: F90.2 Attention-deficit hyperactivity disorder, combined type (principal); K31.84 Gastroparesis | CPT/HCPCS: 90471; 99212 ==

== ENCOUNTER 2024-09-01 14:06 | Outpatient (REF) | payer OTHER, SELFPAY ==
[2024-09-01 15:24] LABS: Hematocrit 38.9 % (37.0-47.0); Hemoglobin 12.9 g/dl (12.0-16.0); Mean Corpuscular HGB Conc 33.2 g/dl (31.0-35.0); Mean Corpuscular Hemoglobin 30.5 pg (27.0-33.0); Platelet Count 291 X10*3/uL (160-400); Red Blood Count 4.23 X10*6/uL (4.20-5.50); Red Cell Distribution Width 12.4 % (11.0-16.0); White Blood Count 6.6 X10*3/uL (4.8-10.8)
[2024-09-01 16:30] LABS: Creatinine Urine 42.51 mg/dL; Microalbumin Urine < 5.0 mg/L
[2024-09-01 17:18] LABS: Alanine Aminotransferase 17 U/L (0-31); Albumin Level 4.3 g/dL (3.5-5.0); Alkaline Phosphatase 77 U/L (39-117); Anion Gap 10 (12-20); Aspartate Amino Transferase 19 U/L (5-31); Bilirubin Total 0.5 mg/dL (0.0-1.0); Blood Urea Nitrogen 12 mg/dL (9-16); Calcium 9.2 mg/dL (8.4-10.2); Carbon Dioxide 25 mmol/L (22-29); Chloride 106 mmol/L (96-108); Estimated Glomerular Filt Rate > 60; Glucose Random 140 mg/dL (60-115); Potassium 3.9 mmol/L (3.3-5.1); Sodium 137 mmol/L (135-145); Total Protein 6.9 g/dL (6.5-8.0)
== END 2024-09-01 14:07 | disposition home or self-care (01) ==
LOC: HO.LAB 14:06
PROVIDERS: PCP Physician Assistant; Visit Provider Physician Assistant
DX: E10.43 Type 1 diabetes mellitus with diabetic autonomic (poly)neuropathy (principal); K31.9 Disease of stomach and duodenum, unspecified
CPT/HCPCS: 36415; 80053; 82043; 82570; 85027

== ENCOUNTER 2024-09-02 14:15 | Outpatient (AMB) | payer OTHER, SELFPAY ==
[2024-09-02 14:19] VITALS: BP 124/62; PULSE 81; O2SAT 98; BMI 17.1
--- NOTE | 2024-09-02 14:19 | A.OFFPC_ITS ---
Vital Signs 09/02/24 14:19 Height 5 ft 9 in Weight 116 lb BMI 17.1 BP 124/62 Blood Pressure Location Lt brachial Position Sitting Pulse 81 Pulse Source Pulse Oximeter Pulse Oximetry (%) 98 Oxygen Delivery Method Room Air Intake Visit Reasons: f/u DMII Intake Note: Patient states she has been having panic attacks all morning and can not get them to stop. Allergies latex Allergy (Severe, Verified 09/02/24 14:58) Anaphylaxis - latex gloves hazelnut Allergy (Unknown, Verified 09/02/24 14:58) Anaphylaxis metoclopramide [From Reglan] Allergy (Unknown, Verified 09/02/24 14:58) Dystonia Sulfa (Sulfonamide Antibiotics) Allergy (Unknown, Verified 09/02/24 14:58) anaphylaxis Medication List - Last Reconciled 09/02/24 by Jame Da Silva PA-C albuterol sulfate 90 mcg/actuation (Ventolin HFA) 2 puffs PO Q6H 30 days blood pressure test kit-large As directed clonidine HCl 0.2 mg PO BID 30 days dexmethylphenidate ER mg PO QAM epinephrine (EpiPen 2-Ian) 0.3 mg (0.3 mL) IM Q10M PRN 30 days ferrous gluconate mg PO Humalog Min KwikPen U-100 (insulin lispro) up to 10 units subcut five times a day; 30 days NS insulin aspart U-100 (Novolog U-100 Insulin aspart) up to 125 units daily via pumpsubcut daily; 30 days insulin syringe-needle U-100 As directed lamotrigine mg PO multivitamin (Daily Multi-Vitamin tablet) 1 tab PO DAILY pen needle, diabetic (BD Ultra-Fine Lucille Pen Needle) 1 ea subcut up to 7 times a day; 30 days pyridoxine (vitamin B6) (Vitamin B-6) 25 mg PO TID zolpidem 10 mg PO BEDTIME 30 days Tobacco use date assessed: 09/02/24 Dental Screening Dental Screen Date: 09/02/24 Did you have a dental visit in the last 12 months?: Yes Did you have a dental problem in the last 6 months where you did not have access to dental care?: No Was dental information given to patient?: Patient has dentist HPI f/u DMII HPI Details Patient is a 33-year-old female here today for follow-up on her ADHD and depression. ADHD: Has reestablish care with a psychiatrist whom has changed her Vyvanse to Focalin which has been helpful for her attention and focus. Type 1 diabetes: Has been fairly well controlled. Today's A1c is 7.0. She does have gastroparesis and often does have nausea and GI discomfort. She is pretty traumatized by her previous episodes of gastroparesis which triggers her anxiety to be heightened.She does have a gastric stimulator and has been evaluated by her GI surgeon to which she reports they have her gastric stimulator on setting low and which should last the next 7-10 years. She does report use of ondansetron, promethazine have not been too effective. She does report Benadryl as effective though is difficult to keep down. We did discuss trying liquid Benadryl during her times of gastroparesi She reports during her menses once a month her GI symptoms and anxiety elevate which causes her to be pretty disabled. She is interested in an as needed medication to help her in emergencies for her anxiety. ON LICENSE OF [facility] Medical History depression Cervical cancer screening Type 2 diabetes mellitus with diabetic neuropathy, unspecified Anxiety Depression Fibromyalgia Asthma Surgical History History of tooth extraction History of exploratory laparotomy History of gastric surgery History of D&C History of appendectomy Family History Father No problems noted. Mother Heart problem Brother Autism Maternal Aunt Breast cancer Other Mental health disorder Social History Household Members: Significant Other Housing: House Alcohol intake: never Patient Tobacco Use Status: Former Tobacco user Tobacco use type: Cigarette e-Cigarette/Vaping Use: Never Used Second Hand Smoke Exposure: Yes Substance Use Type: Marijuana service: No Current occupational status: unemployed and disabled Gender identity: Female Cognitive needs: No Hearing needs: No Vision needs: Yes Female Reproductive History Menstrual Age of Menarche: 16 Questionnaire PHQ-9 Over the last 2 weeks, how often have you been bothered by any of the following problems? 1. Little interest or pleasure in doing things: more than half the days 2. Feeling down, depressed, or hopeless: more than half the days 3. Trouble falling or staying asleep, or sleeping too much: nearly every day 4. Feeling tired or having little energy: nearly every day 5. Poor appetite or overeating: nearly every day 6. Feeling bad about yourself - or that you are a failure or have let yourself or your family down: more than half the days 7. Trouble concentrating on things, such as reading the newspaper or watching television: nearly every day 8. Moving or speaking so slowly that other people could have noticed. Or the opposite - being so fidgety or restless that you have been moving around a lot more than usual: more than half the days 9. Thoughts that you would be better off or of hurting yourself in some way: not at all Total score: 20 Depression Screening Interpretation: Positive Depression Screening Follow-up: Existing condition Depression Screening Done: Yes 99052 - PHQ-9 Billing: Yes Source: Developed by Drs. Evans Bose, Maye Byrd, Catracho Sullivan and colleagues, with an educational renny from [employer]. Thrive Questionnaire Date Thrive assessed: 09/02/24 I am a: Patient What is your living situation today?: I have a steady place to live Within the past 12 months, did the food you bought not last and you didn't have the money to get more?: Never true Within the past 12 months, did you worry whether your food would run out before you got money to buy more?: Never true Do you have trouble paying for medicines?: No Do you have trouble getting transportation to medical appointments?: No Do you have trouble paying your heating and electricity bill?: No Do you have trouble taking care of your child, family member or friend?: No Do you have trouble with day-to-day activities such as bathing, preparing meals, shopping, managing finances, etc.?: No Are you currently unemployed and looking for a job?: No Are you interested in more education?: No Currently or been in a relationship where the following occur: No concerns reported THRIVE Score: 0 AUDIT C Alcohol Use Questionnaire (AUDIT-C) 1. How often do you have a drink containing alcohol?: Never 3. How often do you have six or more drinks on one occasion?: Never Total Score: 0 CLEMENT-7 AMB Questionnaire CLEMENT-7 Date CLEMENT - 7 assessed: 09/02/24 Feeling nervous, anxious, or on edge: 1 = Several days Not being able to stop or control worryin = Several days Worrying too much about different things: 1 = Several days Trouble relaxin = Several days Being so restless that it is hard to sit still: 1 = Several days Becoming easily annoyed or irritable: 1 = Several days Feeling afraid as if something awful might happen: 1 = Several days Total CLEMENT-7 score (0-4 normal; 5-9 mild; 10-14 moderate; 15-21 severe): 7 Source: Developed by Drs. Evans Bose, Maye Byrd, Catracho Sullivan and colleagues, with an educational renny from [employer]. CLEMENT-7 Assessment Billing CLEMENT-7 Assessment Tool: CLEMENT-7 Assessment 17823 Review of Systems Const Denies headache(s) Eyes Denies loss of vision ENT Denies vertigo, Denies dizziness, Denies headache(s) and Denies sore throat Card Denies chest pain, Denies leg edema and Denies lightheadedness Resp Denies cough, Denies hemoptysis and Denies wheezing GI Denies abdominal pain, Denies melena, Denies constipation, Denies diarrhea and Denies vomiting Denies urinary frequency, Denies dysuria and Denies urinary urgency Musc Denies arthralgias, Denies joint swelling, Denies numbness and Denies tingling Neuro Denies Abnormal speech present, Denies behavioral changes, Denies vertigo, Den ies dizziness, Denies headache(s), Denies loss of vision, Denies memory loss, Denies numbness and Denies tingling Psych Denies anxiety, Denies behavioral changes, Denies depression, Denies memory loss and Denies panic attacks Zurdo/Lymph Denies easy bleeding and Denies easy bruising Aller/Immun Denies wheezing Physical exam (Primary Care) Vital Signs: Last Vital Signs Pulse 81 09/02/24 14:19 BP 124/62 09/02/24 14:19 Pulse Ox 98 09/02/24 14:19 Oxygen Delivery Method Room Air 09/02/24 14:19 BMI result Body Mass Index 17.1 Tobacco/Smoking Status: Tobacco use Status Tobacco use date assessed 09/02/24 09/02/24 14:21 Patient Tobacco Use Status Former Tobacco user 09/02/24 14:21 Tobacco use type Cigarette 09/02/24 14:21 e-Cigarette/Vaping Use Never Used 09/02/24 14:21 PHQ-9: PHQ-9 Score PHQ-9: Total score 20 09/02/24 15:09 Depression Screening Interpretation: Positive Depression Screening Follow-up: Existing condition Thrive Assessment: Date of Thrive Assessment Date Thrive assessed 09/02/24 09/02/24 14:21 Currently or been in a relationship where the following occur: No concerns reported Const General: healthy appearing, no acute distress, alert and awake Nutritional Appearance: well nourished Orientation/consciousness: oriented to person, oriented to place and oriented to time HENMT Ears: TM's normal bilaterally General nose exam: Normal nasal mucous membranes and turbinates present Eyes Conjunctivae: conjunctivae normal Sclerae: sclerae normal Pupils: Equal, round and reactive pupils present Neck Neck: Yes no lymphadenopathy and Yes no JVD Thyroid: Thyroid normal Carotids: no bruits Resp Effort & Inspection: normal respiratory effort and not tachypneic Auscultation: no crackles, no rales, no rhonchi and no wheezes Cardio Rate: regular rate Rhythm: regular rhythm Heart sounds: no murmurs and normal S1 and S2 GI Palpation (GI): Soft to palpation, nontender, no hepatomegaly and no splenomegaly Auscultation: normal bowel sounds Skin General skin exam: no rashes or lesions noted and dry skin Neuro General: oriented to person, oriented to place and oriented to time Cranial nerves: Yes Equal, round and reactive pupils present Speech: No Abnormal speech present Gait exam (Neuro): Normal gait present Motor exam (neuro): no tremor noted Extrem Right upper extremity: full ROM Left upper extremity: full ROM Right lower extremity: full ROM; no edema Left lower extremity: full ROM; no edema Psych Mental Status: mental status grossly normal Speech and movement: Normal speech and movement present Affect: normal affect Attitude: cooperative Thought process: Normal thought process present Results AMB Hemoglobin A1c AMB Hemoglobin A1c 7.0 % Last Edit by Lexii Serrato CMA on 09/02/24 15 :09 Results Reviewed Results Reviewed: Laboratory Last Values Hgb A1c (Clinic) 7.0 % (4.0-6.0) H 09/02/24 14:21 Coding Level of Care Code Est Pt Level 4 (35626) Diagnoses Type 1 diabetes mellitus with diabetic gastropathy E10.43; K31.9 PTSD (post-traumatic stress disorder) F43.10 Attention deficit hyperactivity disorder (ADHD), combined type F90.2 Attention deficit-hyperactivity disorder type: combined inattentive- hyperactive Primary hypertension I10 Hypertension type: primary hypertension Bipolar disorder, in partial remission, most recent episode depressed F31.75 Active/Remission status: in partial remission Most recent bipolar episode type: depressed MDD (major depressive disorder), recurrent episode, moderate F33.1 Additional Codes CLEMENT-7 Assessment Billing - CLEMENT-7 Assessment Tool: CLEMENT-7 Assessment 35465 ([id number]) PHQ-9 - 88429 - PHQ-9 Billing: Yes ([id number]) Assessment & Plan Assessment & Plan (1) 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 Today's A1c is 7.0. She continues to use a insulin pump and a Dexcom glucose meter. Goal A1c is to remain below 7.0 (2) PTSD (post-traumatic stress disorder): Code(s): F43.10 - Post-traumatic stress disorder, unspecified Category: Medical Plan: Patient's CLEMENT-7 score positive for severe anxiety which has been existing condition for her for awhile.. Patient having increasing anxiety symptoms during her times of menses. She has been in discussions with her community development worker about changing her control. She reports her anxiety is crippling to the point she needs to not moving lay down. She has used extra clonidine and Benadryl though has not been effective (3) ADHD: Code(s): F90.9 - Attention-deficit hyperactivity disorder, unspecified type Category: Medical Qualifiers: Attention deficit-hyperactivity disorder type: combined inattentive- hyperactive Qualified Code(s): F90.2 - Attention-deficit hyperactivity disorder, combined type Plan: Patient now followed by psychiatrist in her ADHD medication has been changed to Focalin which has been effective attention and focus. (4) HTN (hypertension): Code(s): I10 - Essential (primary) hypertension Category: Medical Qualifiers: Hypertension type: primary hypertension Qualified Code(s): I10 - Essential (primary) hypertension Plan: Patient's blood pressure acceptable today in office Her blood pressure has been well controlled with dietary in lifestyle modifications (5) Bipolar disorder: Code(s): F31.9 - Bipolar disorder, unspecified Category: Medical Qualifiers: Active/Remission status: in partial remission Most recent bipolar episode type: depressed Qualified Code(s): F31.75 - Bipolar disorder, in partial remission, most recent episode depressed Plan: Patient now followed by psychiatrist. She has been started on lamotrigine for mood stabilization (Lamictal). (6) MDD (major depressive disorder), recurrent episode, moderate: Code(s): F33.1 - Major depressive disorder, recurrent, moderate Category: Medical Plan: Patient's PHQ-9 score positive for depression which has been existing condition for her. She is speaking with a mental health therapist and a psychiatrist and continues on mental health medications that has been helpful. Orders: Orders AMB Hemoglobin A1c 09/02/24 Z13.9 - Encounter for screening, unspecified Medications: New lorazepam 0.5 mg PO DAILY PRN 7 tabs 0RF anxiety 7 days F43.10 - Post-traumatic stress disorder, unspecified Patient Instructions: Goal: A1c to remain below 7.0 Barriers: Adherence to physical activity and healthy eating habits.
== END 2024-09-02 15:21 | disposition home or self-care (01) ==
PROVIDERS: PCP Physician Assistant; Visit Provider Physician Assistant
DX: Z13.9 Encounter for screening, unspecified (principal)

== ENCOUNTER → 2024-09-02 14:15 | Outpatient (BNVA) | payer OTHER, SELFPAY | PROVIDERS: PCP Physician Assistant; Visit Provider Physician Assistant | DX: E10.43 Type 1 diabetes mellitus with diabetic autonomic (poly)neuropathy (principal); K31.9 Disease of stomach and duodenum, unspecified; F43.10 Post-traumatic stress disorder, unspecified; F90.2 Attention-deficit hyperactivity disorder, combined type; I10 Essential (primary) hypertension; F31.75 Bipolar disorder, in partial remission, most recent episode depressed | CPT/HCPCS: 83036; 96127; 99212 ==

== ENCOUNTER 2025-01-21 15:10 | Outpatient (AMB) | payer OTHER, SELFPAY ==
--- NOTE | 2025-01-21 15:13 | A.OFFPC_ITS ---
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 Required: No Accompanied by: Self / Same As Patient Allergies latex Allergy (Severe, Verified 01/21/25 15:27) Anaphylaxis - latex gloves hazelnut Allergy (Unknown, Verified 01/21/25 15:27) Anaphylaxis metoclopramide (From Reglan) Allergy (Unknown, Verified 01/21/25 15:27) Dystonia Sulfa (Sulfonamide Antibiotics) Allergy (Unknown, Verified 01/21/25 15:27) anaphylaxis Medication List - Last Reconciled 01/21/25 by Jame Da Silva PA-C albuterol sulfate 90 mcg/actuation (Ventolin HFA) 2 puffs PO Q6H 30 days blood pressure test kit-large As directed clonidine HCl 0.2 mg PO BID 30 days dexmethylphenidate ER mg PO QAM epinephrine (EpiPen 2-Ian) 0.3 mg (0.3 mL) IM Q10M PRN 30 days ferrous gluconate mg PO Humalog Min KwikPen U-100 (insulin lispro) up to 10 units subcut five times a day; 30 days NS insulin aspart U-100 (Novolog U-100 Insulin aspart) up to 125 units daily via pumpsubcut daily; 30 days insulin syringe-needle U-100 As directed lamotrigine mg PO lorazepam 0.5 mg PO DAILY PRN 2 days multivitamin (Daily Multi-Vitamin tablet) 1 tab PO DAILY pen needle, diabetic (BD Ultra-Fine [employer] Needle) 1 ea subcut up to 7 times a day; 30 days pyridoxine (vitamin B6) (Vitamin B-6) 25 mg PO TID zolpidem 10 mg PO BEDTIME 30 days Tobacco use date assessed: 01/21/25 Dental Screening Dental Screen Date: 09/02/24 HPI Annual Exam HPI Details Patient is a 34-year-old female ADHD: Has reestablish care with a psychiatrist( Dr. Iqbal) whom has changed her Vyvanse to Focalin which has been helpful for her attention and focus. Type 1 diabetes: Continues to follow endocrinology at [facility]. She is managed with a insulin pump.. Has been fairly well controlled. Most recent A1c is at 7.0.. She does have gastroparesis and often does have nausea and GI discomfort. She is pretty traumatized by her previous episodes of gastroparesis which triggers her anxiety to be heightened.She does have a gastric stimulator and has been evaluated by her GI surgeon to which she reports they have her gastric stimulator on setting low and which should last the next 7-10 years. She does report use of ondansetron, promethazine have not been too effective. She does report Benadryl as effective though is difficult to keep down. We did discuss trying liquid Benadryl during her times of gastroparesis .. Mood disorder: Continues to follow psychiatry and has been making some med adjustments for her mood disorder. She has suspected diagnosis of bipolar disorder. Recently started on Geodon that did help her mood though had side effects of brain fog. She reports during her menses once a month her GI symptoms and anxiety elevate which causes her to be pretty disabled. She is interested in an as needed medication to help her in emergencies for her anxiety. 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 Mother Heart problem Brother Autism Maternal Aunt Breast cancer Other Mental health disorder Social History (Updated 01/21/25 @ 15:26 by Jame Da Silva PA-C) Household Members: Significant Other Housing: House Alcohol intake: never Patient Tobacco Use Status: Former Tobacco user Tobacco use type: Smokeless Tobacco e-Cigarette/Vaping Use: Never Used Second Hand Smoke Exposure: Yes Substance Use Type: Marijuana service: No Current occupational status: unemployed and disabled Gender identity: Female Cognitive needs: No Hearing needs: No Vision needs: Yes Female Reproductive History Menstrual Age of Menarche: 16 Questionnaire PHQ-9 Over the last 2 weeks, how often have you been bothered by any of the following problems? 1. Little interest or pleasure in doing things: not at all 2. Feeling down, depressed, or hopeless: several days 3. Trouble falling or staying asleep, or sleeping too much: nearly every day 4. Feeling tired or having little energy: nearly every day 5. Poor appetite or overeating: nearly every day 6. Feeling bad about yourself - or that you are a failure or have let yourself or your family down: more than half the days 7. Trouble concentrating on things, such as reading the newspaper or watching television: nearly every day 8. Moving or speaking so slowly that other people could have noticed. Or the opposite - being so fidgety or restless that you have been moving around a lot more than usual: not at all 9. Thoughts that you would be better off or of hurting yourself in some way: not at all Total score: 15 Depression Screening Interpretation: Positive Depression Screening Follow-up: Existing condition Depression Screening Done: Yes 57763 - PHQ-9 Billing: Yes Source: Developed by Drs. Evans Bose, Maye Byrd, Catracho Sullivan and colleagues, with an educational renny from [employer]. Thrive Questionnaire Date Thrive assessed: 01/21/25 I am a: Patient What is your living situation today?: I have a steady place to live Within the past 12 months, did the food you bought not last and you didn't have the money to get more?: I choose not to answer this question Within the past 12 months, did you worry whether your food would run out before you got money to buy more?: I choose not to answer this question Do you have trouble paying for medicines?: I choose not to answer this question Do you have trouble getting transportation to medical appointments?: I choose not to answer this question Do you have trouble paying your heating and electricity bill?: I choose not to answer this question Do you have trouble taking care of your child, family member or friend?: I choose not to answer this question Do you have trouble with day-to-day activities such as bathing, preparing meals, shopping, managing finances, etc.?: I choose not to answer this question Are you currently unemployed and looking for a job?: I choose not to answer this question Are you interested in more education?: I choose not to answer this question Please select the resources that you would like help with: None Currently or been in a relationship where the following occur: I choose not to answer THRIVE Score: 0 AUDIT C Alcohol Use Questionnaire (AUDIT-C) 1. How often do you have a drink containing alcohol?: Never Total Score: 0 CLEMENT-7 AMB Questionnaire CLEMENT-7 Date CLEMENT - 7 assessed: 09/23/24 Feeling nervous, anxious, or on edge: 3 = Nearly every day Not being able to stop or control worryin = Nearly every day Worrying too much about different things: 3 = Nearly every day Trouble relaxin = Nearly every day Being so restless that it is hard to sit still: 3 = Nearly every day Becoming easily annoyed or irritable: 3 = Nearly every day Feeling afraid as if something awful might happen: 2 = More than half the days Total CLEMENT-7 score (0-4 normal; 5-9 mild; 10-14 moderate; 15-21 severe): 20 Source: Developed by Drs. Evans Bose, Maye Byrd, Catracho Sullivan and colleagues, with an educational renny from [employer]. CLEMENT-7 Assessment Billing CLEMENT-7 Assessment Tool: CLEMENT-7 Assessment 95604 Review of Systems Const Denies body aches, Denies chills, Denies excessive sweating, Denies fatigue, Denies fever(s) and Denies headache(s) Eyes Denies blurry vision ENT Denies dysphagia, Denies vertigo, Denies dizziness, Denies headache(s), Denies hearing loss and Denies tinnitus Card Denies chest pain, Denies chest pain with activity, Denies syncope, Denies irregular heart rhythm and Denies dyspnea Resp Denies chest congestion, Denies cough, Denies hemoptysis, Denies dyspnea and Denies wheezing GI Denies abdominal pain, Denies melena, Denies hematochezia, Denies coffee ground emesis, Denies dysphagia, Denies diarrhea, Denies nausea and Denies vomiting Denies urinary frequency, Denies dysuria, Denies urinary hesitancy and Denies urinary urgency Musc Denies arthralgias, Denies limited range of motion, Denies muscle cramps and Denies muscle weakness Skin/Breast Denies rash and Denies skin ulcer Neuro Denies Abnormal speech present, Denies confusion, Denies vertigo, Denies dizziness, Denies syncope, Denies headache(s), Denies memory loss and Denies seizure-like activity Psych Denies anxiety, Denies confusion, Denies depression, Denies memory loss, Denies panic attacks and Denies paranoia Endo Denies excessive sweating, Denies fatigue, Denies flushing, Denies polydipsia and Denies polyuria Aller/Immun Denies wheezing Physical exam (Primary Care) Vital Signs: Last Vital Signs Pulse 78 01/21/25 15:15 BP 116/68 01/21/25 15:15 Pulse Ox 98 01/21/25 15:15 BMI result Body Mass Index 17.2 Tobacco/Smoking Status: Tobacco use Status Tobacco use date assessed 09/02/24 09/02/24 14:21 Patient Tobacco Use Status Former Tobacco user 09/02/24 14:21 Tobacco use type Cigarette 09/02/24 14:21 e-Cigarette/Vaping Use Never Used 09/02/24 14:21 Depression Screening Interpretation: Positive Depression Screening Follow-up: Existing condition Thrive Assessment: Date of Thrive Assessment Date Thrive assessed 09/02/24 09/02/24 14:21 Currently or been in a relationship where the following occur: I choose not to answer Const General: cooperative, comfortable, no acute distress, alert and awake; No confusion Orientation/consciousness: oriented to person, oriented to place, patient oriented x3 and No confusion HENMT Head: Yes normocephalic Ears: external ears normal and TM's normal bilaterally Face and sinus: No sinus tenderness Mouth: Normal oral and palatal mucosa present and tongue normal Teeth and gingiva: dentition normal and gingiva normal Throat: Yes posterior oropharynx normal, Yes tonsils normal and Yes uvula midline Eyes Conjunctivae: conjunctivae normal Sclerae: sclerae normal Pupils: Equal, round and reactive pupils present EOM: EOMs intact bilaterally Direct Ophthalmoscopy: No no photophobia Neck Neck: Yes no lymphadenopathy, No tender and Yes no JVD Thyroid: Thyroid normal Carotids: no bruits Chest Chest palpation & inspection: no tenderness Resp Effort & Inspection: normal respiratory effort, no audible wheezes, not labored and no stridor Auscultation: no crackles, no rales, no rhonchi and no wheezes Cardio Jugular venous distension: no JVD Rate: regular rate, not bradycardic and not tachycardic Rhythm: regular rhythm Bruits: no carotid bruits Peripheral pulses: Peripheral pulses 2+ throughout GI Inspection: Yes normal to inspection, No abdominal wall ecchymosis and No visible herniation Palpation (GI): Soft to palpation, nontender, no guarding, not rigid and No hepatosplenomegaly present Auscultation: normoactive bowel sounds General: Yes no CVA tenderness Back/Spine/Pelvis Back: no CVA tenderness and No back tenderness Cervical Spine: cervical ROM normal Thoracic/Lumbar Spine: thoracic and lumbar spine normal to inspection, straight leg raise negative bilaterally, No thoraco-lumbar ROM limited and No lumbar spinal tenderness Skin Lesions: no lesions Rashes: no rashes Wounds: no wounds Neuro General: oriented to person, oriented to place, patient oriented x3, CN's II-XI intact bilaterally and No confusion Cranial nerves: Yes Equal, round and reactive pupils present and Yes Normal accommodation reflex present Cognition (Neuro): normal cognition Speech: No Abnormal speech present Gait exam (Neuro): Normal gait present Motor exam (neuro): 5/5 motor strength present throughout Extrem Right upper extremity: full ROM; no cyanosis Left upper extremity: full ROM; no cyanosis Right lower extremity: no edema Left lower extremity: no edema Psych Appearance: grossly normal Mental Status: mental status grossly normal Affect: normal affect Attitude: cooperative Thought process: Normal thought process present Coding Level of Care Code Est Pt Prev Care 18-39y(75657) Diagnoses Annual physical exam Z00.00 Type 1 diabetes mellitus with diabetic gastropathy E10.43; K31.9 PTSD (post-traumatic stress disorder) F43.10 Attention deficit hyperactivity disorder (ADHD), combined type F90.2 Attention deficit-hyperactivity disorder type: combined inattentive- hyperactive Primary hypertension I10 Hypertension type: primary hypertension Bipolar disorder, in partial remission, most recent episode depressed F31.75 Active/Remission status: in partial remission Most recent bipolar episode type: depressed MDD (major depressive disorder), recurrent episode, moderate F33.1 Additional Codes CLEMENT-7 Assessment Billing - CLEMENT-7 Assessment Tool: CLEMENT-7 Assessment [id number] ([id number]) PHQ-9 - 01025 - PHQ-9 Billing: Yes ([id number]) Assessment & Plan Assessment & Plan (1) Annual physical exam: Code(s): Z00.00 - Encounter for general adult medical examination without abnormal findings Category: Medical Plan: As per HPI (2) 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 Today's A1c is 7.0. Continues to follow endocrinology at [facility]. She continues to use a insulin pump and a Dexcom glucose meter. Goal A1c is to remain below 7.0 (3) PTSD (post-traumatic stress disorder): Code(s): F43.10 - Post-traumatic stress disorder, unspecified Category: Medical Plan: patient does suffer from severe anxiety which has been existing condition for her for awhile.. Patient having increasing anxiety symptoms during her times of menses. She has been in discussions with her manager diabetes about changing her control. Patient's CLEMENT-7 score positive (4) ADHD: Code(s): F90.9 - Attention-deficit hyperactivity disorder, unspecified type Category: Medical Qualifiers: Attention deficit-hyperactivity disorder type: combined inattentive- hyperactive Qualified Code(s): F90.2 - Attention-deficit hyperactivity disorder, combined type Plan: Patient now followed by psychiatrist in her ADHD medication has been changed to Focalin which has been effective attention and focus. (5) HTN (hypertension): Code(s): I10 - Essential (primary) hypertension Category: Medical Qualifiers: Hypertension type: primary hypertension Qualified Code(s): I10 - Essential (primary) hypertension Plan: Patient's blood pressure acceptable today in office Her blood pressure has been well controlled with dietary in lifestyle modifications (6) Bipolar disorder: Code(s): F31.9 - Bipolar disorder, unspecified Category: Medical Qualifiers: Active/Remission status: in partial remission Most recent bipolar episode type: depressed Qualified Code(s): F31.75 - Bipolar disorder, in partial remission, most recent episode depressed Plan: Patient now followed by psychiatrist. Has been making some med adjustments in her psychiatric medications to help her mood. She has been started on lamotrigine for mood stabilization (Lamictal). (7) MDD (major depressive disorder), recurrent episode, moderate: Code(s): F33.1 - Major depressive disorder, recurrent, moderate Category: Medical Plan: Patient's PHQ-9 score positive for depression which has been existing condition for her. She is speaking with a mental health therapist and a psychiatrist and continues on mental health medications that has been helpful. Orders: Orders Complete Blood Count no Diff Today I10 - Essential (primary) hypertension AMB Hemoglobin A1c Today O24.011 - Pre-existing type 1 diabetes mellitus, in , first trimester Comprehensive Met. Panel Today I10 - Essential (primary) hypertension LDL Cholesterol Direct Today E10.43 - Type 1 diabetes mellitus with diabetic autonomic (poly)neuropathy, K31.9 - Disease of stomach and duodenum, unspecified Patient Instructions: Goal: A1c to be below 7.0, LDL to be below 100 Barriers: Adherence to physical activity and healthy eating habits
[2025-01-21 15:15] VITALS: BP 116/68; PULSE 78; O2SAT 98; BMI 17.2
== END 2025-01-21 15:37 | disposition home or self-care (01) ==
LOC: HO.HMCH 15:11
PROVIDERS: PCP Physician Assistant; Visit Provider Physician Assistant
DX: Z00.00 Encounter for general adult medical examination without abnormal findings (principal); E10.43 Type 1 diabetes mellitus with diabetic autonomic (poly)neuropathy; F31.75 Bipolar disorder, in partial remission, most recent episode depressed; K31.9 Disease of stomach and duodenum, unspecified; F43.10 Post-traumatic stress disorder, unspecified; F90.2 Attention-deficit hyperactivity disorder, combined type; I10 Essential (primary) hypertension; O24.011 Pre-existing type 1 diabetes mellitus, in pregnancy, first trimester

== ENCOUNTER → 2025-01-21 15:10 | Outpatient (BNVA) | payer OTHER, SELFPAY | PROVIDERS: PCP Physician Assistant; Visit Provider Physician Assistant | DX: Z00.00 Encounter for general adult medical examination without abnormal findings (principal); E10.43 Type 1 diabetes mellitus with diabetic autonomic (poly)neuropathy; K31.9 Disease of stomach and duodenum, unspecified; F43.10 Post-traumatic stress disorder, unspecified; F90.2 Attention-deficit hyperactivity disorder, combined type; I10 Essential (primary) hypertension; F31.75 Bipolar disorder, in partial remission, most recent episode depressed; Z96.41 Presence of insulin pump (external) (internal) | CPT/HCPCS: 83036; 96127; 99395 ==

== ENCOUNTER 2025-05-29 11:38 | Outpatient (REF) | payer OTHER, SELFPAY ==
--- OUTSIDE RECORDS SUMMARY | 2025-05-29 11:43 | XMS_ITS | Clinical Summary ---
Author Organization [facility] Address [address] [place] [id number] Phone Care Team Providers Care Healthcare Administration Intern Name Role Phone Damaris Merrill MD Primary Care Provider Unavaila ble Damaris Merrill MD Unavailable Unavailable Damaris Merrill MD Unavailable Unavailable Social History Tobacco Use Types Packs/Day Years Used Date Smoking Tobacco: Never Assessed Comments Unknown Sex and Gender Information Value Date Recorded Sex Assigned at Not on file Legal Sex Female 9:47 PM EDT Gender Identity Not on file Sexual Orientation Not on file Plan of Treatment Not on file Care Teams Healthcare Administration Intern Relationship Specialty Start Date End Date Damaris Merrill MD PCP - General 08/05/12 Damaris Merrill MD PCP - Clinical PCP 08/05/12 Damaris Merrill MD PCP - Insurance PCP 08/05/12
[2025-05-29 13:43] LABS: Hematocrit 43.4 % (37.0-47.0); Hemoglobin 14.1 g/dl (12.0-16.0); Mean Corpuscular HGB Conc 32.5 g/dl (31.0-35.0); Mean Corpuscular Hemoglobin 29.4 pg (27.0-33.0); Mean Corpuscular Volume 90.6 fL (80.0-98.0); NRBC Abs Auto 0.000 X10*3/uL (0.0-0.012); NRBC Pct Auto 0.0 /100WBC (0.0-0.2); Platelet Count 292 X10*3/uL (160-400); Red Blood Count 4.79 X10*6/uL (4.20-5.50); White Blood Count 5.4 X10*3/uL (4.8-10.8)
[2025-05-29 14:00] LABS: Alanine Aminotransferase 18 U/L (0-31); Albumin Level 4.9 g/dL (3.5-5.0); Alkaline Phosphatase 76 U/L (39-117); Anion Gap 17 (12-20); Aspartate Amino Transferase 23 U/L (5-31); Blood Urea Nitrogen 16 mg/dL (9-16); Calcium 9.5 mg/dL (8.4-10.2); Carbon Dioxide 24 mmol/L (22-29); Chloride 103 mmol/L (96-108); Estimated Glomerular Filt Rate > 60; Potassium 4.0 mmol/L (3.3-5.1); Sodium 140 mmol/L (135-145); Total Protein 7.3 g/dL (6.5-8.0)
[2025-05-29 14:01] LABS: Appearance Urine Turbid; Glucose Urine UA Negative (Negative); PH 5.5 (5.0-9.0); Specific Gravity - Urine 1.020 (1.005-1.025); UMIC TRIGGER UACC YES
[2025-05-29 14:12] LABS: UACC Culture Trigger YES
== END 2025-05-29 11:39 | disposition home or self-care (01) ==
LOC: HO.HMGCLDS 11:38
PROVIDERS: PCP Physician Assistant; Visit Provider Internal Medicine
DX: E10.43 Type 1 diabetes mellitus with diabetic autonomic (poly)neuropathy (principal); K31.9 Disease of stomach and duodenum, unspecified; I10 Essential (primary) hypertension
CPT/HCPCS: 36415; 80053; 81001; 81003; 83721; 85027; 87086; 87088; 87186

== ENCOUNTER 2025-06-15 12:49 | Outpatient (AMB) | payer OTHER, SELFPAY ==
--- NOTE | 2025-06-15 12:58 | MHC.PC.OV ---
Vital Signs 06/15/25 13:00 Height 5 ft 9 in Weight 115 lb BMI 17.0 BP 130/72 Blood Pressure Location Lt brachial Position Sitting Pulse 81 Pulse Source Pulse Oximeter Temp 97.5 F Temp Source Temporal Artery Scan Pulse Oximetry (%) 98 Oxygen Delivery Method Room Air Intake Visit Reasons: pre op, teeth extraction-ok per [facility] Intake Note: Patient is here for a Pre-op for Tooth exaction scheduled with Dr Villareal (Dr Bunch ([place])) on unknown. Aba Therapist Required: No Burrer Marker Axle: Not Required per policy Accompanied by: Self / Same As Patient Allergies latex Allergy (Severe, Verified 06/15/25 13:10) Anaphylaxis - latex gloves hazelnut Allergy (Unknown, Verified 06/15/25 13:10) Anaphylaxis metoclopramide (From Reglan) Allergy (Unknown, Verified 06/15/25 13:10) Dystonia Sulfa (Sulfonamide Antibiotics) Allergy (Unknown, Verified 06/15/25 13:10) anaphylaxis Medication List - Last Reconciled 06/15/25 by Jame Da Silva PA-C albuterol sulfate 90 mcg/actuation (Ventolin HFA) 2 puffs PO Q6H 30 days blood pressure test kit-large As directed clonidine HCl 0.2 mg PO BID 30 days dexmethylphenidate ER mg PO QAM epinephrine (EpiPen 2-Ian) 0.3 mg (0.3 mL) IM Q10M PRN 30 days ferrous gluconate mg PO Humalog Min KwikPen U-100 (insulin lispro) up to 10 units subcut five times a day; 30 days NS insulin syringe-needle U-100 As directed lamotrigine mg PO lorazepam 0.5 mg PO DAILY PRN 2 days multivitamin (Daily Multi-Vitamin tablet) 1 tab PO DAILY pen needle, diabetic (BD Ultra-Fine Lucille Pen Needle) 1 ea subcut up to 7 times a day; 30 days pyridoxine (vitamin B6) (Vitamin B-6) 25 mg PO TID zolpidem 10 mg PO BEDTIME 30 days Tobacco use date assessed: 06/15/25 Dental Screening Dental Screen Date: 09/02/24 HPI pre op, teeth extraction-ok per [facility] HPI Details Patient is a 34-year-old female here today for preop visit. Patient has a past medical history significant for type 1 diabetes, bipolar disorder type 1, PTSD major depressive disorder and ADHD. Patient has no past medical history significant for Congestive heart failure, mi or CVA. She is not on any anticoagulation or antiplatelet therapy at this time The patient has a history of type 1 diabetes mellitus and gastroparesis, which causes frequent vomiting, leading to severe decay in the lower teeth. The patient already has full upper dentures, which were placed immediately after extraction in an operating room setting. The patient is now scheduled for extraction of all lower teeth. Insurance will cover the extractions but requires a six-month waiting period for the gums to heal before covering a new set of dentures. This has caused significant anxiety regarding the ability to maintain adequate nutrition and social functioning during this period. Associated symptoms include severe dental pain, with pieces of teeth falling out. The patient has been unable to eat raw vegetables for three to four months and can only chew on the right side of the mouth, which has resulted in recurrent jaw dislocation. The patient also reports medication-induced xerostomia, which exacerbates the dental issues. The patient's diabetes is reported to be fairly well-controlled, and the patient healed well from the prior upper teeth extractions. The patient's dentist recommended obtaining a letter from the PCP to support the medical necessity of immediate dentures. [facility] Medical History depression Cervical cancer screening Type 2 diabetes mellitus with diabetic neuropathy, unspecified Anxiety Depression Fibromyalgia Asthma Surgical History History of tooth extraction History of exploratory laparotomy History of gastric surgery History of D&C History of appendectomy Family History Father No problems noted. Mother Heart problem Brother Autism Maternal Aunt Breast cancer Other Mental health disorder Social History Household Members: Significant Other Housing: House Alcohol intake: never Patient Tobacco Use Status: Former Tobacco user Tobacco use type: Smokeless Tobacco e-Cigarette/Vaping Use: Currently Using Second Hand Smoke Exposure: Yes Substance Use Type: Marijuana service: No Current occupational status: unemployed and disabled Gender identity: Female Cognitive needs: No Hearing needs: No Vision needs: Yes Female Reproductive History Menstrual Age of Menarche: 16 Questionnaire Thrive Questionnaire Date Thrive assessed: 01/21/25 I am a: Patient What is your living situation today?: I have a steady place to live Within the past 12 months, did the food you bought not last and you didn't have the money to get more?: I choose not to answer this question Within the past 12 months, did you worry whether your food would run out before you got money to buy more?: I choose not to answer this question Do you have trouble paying for medicines?: I choose not to answer this question Do you have trouble getting transportation to medical appointments?: I choose not to answer this question Do you have trouble paying your heating and electricity bill?: I choose not to answer this question Do you have trouble taking care of your child, family member or friend?: I choose not to answer this question Do you have trouble with day-to-day activities such as bathing, preparing meals, shopping, managing finances, etc.?: I choose not to answer this question Are you currently unemployed and looking for a job?: I choose not to answer this question Are you interested in more education?: I choose not to answer this question Please select the resources that you would like help with: None Currently or been in a relationship where the following occur: I choose not to answer THRIVE Score: 0 CLEMENT-7 AMB Questionnaire CLEMENT-7 Date CLEMENT - 7 assessed: 09/23/24 Source: Developed by Drs. Evans Bose, Maye Byrd, Catracho Sullivan and colleagues, with an educational renny from [employer] Review of Systems Const Denies headache(s) Eyes Denies loss of vision ENT Denies vertigo, Denies dizziness, Denies headache(s) and Denies sore throat Card Denies chest pain, Denies leg edema and Denies lightheadedness Resp Denies cough, Denies hemoptysis and Denies wheezing GI Denies abdominal pain, Denies melena, Denies constipation, Denies diarrhea and Denies vomiting Denies urinary frequency, Denies dysuria and Denies urinary urgency Musc Denies arthralgias, Denies joint swelling, Denies numbness and Denies tingling Neuro Denies Abnormal speech present, Denies behavioral changes, Denies vertigo, Denies dizziness, Denies headache(s), Denies loss of vision, Denies memory loss, Denies numbness and Denies tingling Psych Denies anxiety, Denies behavioral changes, Denies depression, Denies memory loss and Denies panic attacks Zurdo/Lymph Denies easy bleeding and Denies easy bruising Aller/Immun Denies wheezing Physical exam (Primary Care) Vital Signs: Last Vital Signs Temp 97.5 F 06/15/25 13:00 Oxygen Delivery Method Room Air 06/15/25 13:00 BMI result Body Mass Index 17.0 Tobacco/Smoking Status: Tobacco use Status Tobacco use date assessed 01/21/25 06/15/25 12:59 Patient Tobacco Use Status Former Tobacco user 06/15/25 13:07 Tobacco use type Smokeless Tobacco 06/15/25 13:07 e-Cigarette/Vaping Use Currently Using 06/15/25 13:07 Thrive Assessment: Date of Thrive Assessment Date Thrive assessed 01/21/25 06/15/25 12:59 Currently or been in a relationship where the following occur: I choose not to answer Const General: healthy appearing, no acute distress, alert and awake Nutritional Appearance: well nourished Orientation/consciousness: oriented to person, oriented to place and oriented to time HENMT Other: POOR DENTITION NOTED Ears: TM's normal bilaterally General nose exam: Normal nasal mucous membranes and turbinates present Eyes Conjunctivae: conjunctivae normal Sclerae: sclerae normal Pupils: Equal, round and reactive pupils present Neck Neck: Yes no lymphadenopathy and Yes no JVD Thyroid: Thyroid normal Carotids: no bruits Resp Effort & Inspection: normal respiratory effort and not tachypneic Auscultation: no crackles, no rales, no rhonchi and no wheezes Cardio Rate: regular rate Rhythm: regular rhythm Heart sounds: no murmurs and normal S1 and S2 GI Palpation (GI): Soft to palpation, nontender, no hepatomegaly and no splenomegaly Auscultation: normal bowel sounds Skin General skin exam: no rashes or lesions noted and dry skin Neuro General: oriented to person, oriented to place and oriented to time Cranial nerves: Yes Equal, round and reactive pupils present Speech: No Abnormal speech present Gait exam (Neuro): Normal gait present Motor exam (neuro): no tremor noted Extrem Right upper extremity: full ROM Left upper extremity: full ROM Right lower extremity: full ROM; no edema Left lower extremity: full ROM; no edema Psych Mental Status: mental status grossly normal Speech and movement: Normal speech and movement present Affect: normal affect Attitude: cooperative Thought process: Normal thought process present Results AMB Hemoglobin A1c AMB Hemoglobin A1c 6.9 % Last Edit by MIRLANDE Seo on 06/15/25 13:11 Coding Level of Care Code Est Pt Level 4 (96443) Diagnoses Pre-op evaluation Z01.818 Assessment & Plan Assessment & Plan (1) Pre-op evaluation: Code(s): Z01.818 - Encounter for other preprocedural examination Category: Medical Plan: Patient is due for dental extractions under general anesthesia her most recent labs are stable. EKGs has been within normal range as well. Patient is medically clear for needed dental extractions. A letter of medical necessity will be provided to the patient to submit to the insurance carrier. The letter will emphasize that due to the patient's longstanding type 1 diabetes and gastroparesis, immediate lower dentures following extractions are medically necessary to maintain adequate nutrition and prevent destabilization of blood glucose levels. Orders: Orders AMB Hemoglobin A1c Today E10.43 - Type 1 diabetes mellitus with diabetic autonomic (poly)neuropathy, K31.9 - Disease of stomach and duodenum, unspecified ECG 12 lead EKG Today Z01.818 - Encounter for other preprocedural examination
[2025-06-15 13:00] VITALS: BP 130/72; PULSE 81; TEMP 36.4; O2SAT 98; BMI 17.0
--- OUTSIDE RECORDS SUMMARY | 2025-06-15 16:29 | XMS_ITS | Clinical Summary ---
Author Organization [facility] Address [address] [place] [phone] Phone Care Team Providers Care Defense Analyst Name Role Phone Damaris Merrill MD Primary [...] of Treatment Not on file Care Teams Defense Analyst Relationship Specialty Start Date End Date Damaris Merrill MD PCP - General 08/05/12 Damaris Merrill MD PCP - Clinical PCP 08/05/12 Damaris Merrill MD PCP - Insurance PCP 08/05/12
== END 2025-06-15 13:34 | disposition home or self-care (01) ==
LOC: HO.HMCH 12:50
PROVIDERS: PCP Physician Assistant; Visit Provider Physician Assistant
DX: E10.43 Type 1 diabetes mellitus with diabetic autonomic (poly)neuropathy (principal); K31.9 Disease of stomach and duodenum, unspecified; Z01.818 Encounter for other preprocedural examination

== ENCOUNTER → 2025-06-15 12:49 | Outpatient (BNVA) | payer OTHER, SELFPAY | PROVIDERS: PCP Physician Assistant; Visit Provider Physician Assistant | DX: Z01.818 Encounter for other preprocedural examination (principal); K08.9 Disorder of teeth and supporting structures, unspecified; E10.43 Type 1 diabetes mellitus with diabetic autonomic (poly)neuropathy; K31.9 Disease of stomach and duodenum, unspecified | CPT/HCPCS: 83036; 99212 ==

== ENCOUNTER 2025-07-05 14:27 | Outpatient (AMB) | payer OTHER, SELFPAY ==
--- NOTE | 2025-07-05 14:39 | A.OFFPC_ITS ---
Vital Signs 07/05/25 14:40 Height 5 ft 9 in Weight 118 lb 4 oz BMI 17.5 BP 120/68 Blood Pressure Location Lt brachial Position Sitting Pulse 90 Pulse Source Pulse Oximeter Temp 97.7 F Temp Source Temporal Artery Scan Pulse Oximetry (%) 98 Oxygen Delivery Method Room Air Intake Visit Reasons: lower back pain Fruit Packer Required: No Tool And Die Maker/Designer: Not Required per policy Accompanied by: Self / Same As Patient Allergies latex Allergy (Severe, Verified 07/05/25 14:51) Anaphylaxis - latex gloves hazelnut Allergy (Unknown, Verified 07/05/25 14:51) Anaphylaxis metoclopramide (From Reglan) Allergy (Unknown, Verified 07/05/25 14:51) Dystonia Sulfa (Sulfonamide Antibiotics) Allergy (Unknown, Verified 07/05/25 14:51) anaphylaxis Medication List - Last Reconciled 07/05/25 by Angie Mathur PA-C albuterol sulfate 90 mcg/actuation (Ventolin HFA) 2 puffs PO Q6H 30 days blood pressure test kit-large As directed clonidine HCl 0.2 mg PO BID 30 days dexmethylphenidate ER mg PO QAM epinephrine (EpiPen 2-Ian) 0.3 mg (0.3 mL) IM Q10M PRN 30 days ferrous gluconate mg PO Humalog Min KwikPen U-100 (insulin lispro) up to 10 units subcut five times a day; 30 days NS insulin syringe-needle U-100 As directed lamotrigine mg PO lorazepam 0.5 mg PO DAILY PRN 2 days multivitamin (Daily Multi-Vitamin tablet) 1 tab PO DAILY pen needle, diabetic (BD Ultra-Fine Lucille Pen Needle) 1 ea subcut up to 7 times a day; 30 days pyridoxine (vitamin B6) (Vitamin B-6) 25 mg PO TID ziprasidone HCl 40 mg PO DAILY zolpidem 10 mg PO BEDTIME 30 days Tobacco use date assessed: 07/05/25 Dental Screening Dental Screen Date: 09/02/24 HPI lower back pain HPI Details 34-year-old female with past medical his tory of GERD, bipolar disorder, anxiety, type 1 diabetes, ADHD, hypertension, PTSD and depression last seen 06/15 coming in for acute problem. Presenting with right-sided back pain. The pain started approximately four days ago and has been worsening and occurring more frequently since onset. She describes the pain as a random, dull, stabbing sensation that feels like a contraction or being punched, spreads out a little, lasts for a few seconds, and then resolves on its own. The pain occurs infrequently during the day (2-3 times) but is significantly worse in the morning and at night. There are no alleviating factors, as the pain is too brief for any intervention to be effective. A few weeks ago, she had a urinary tract infection with similar pain on her left side, which resolved with antibiotics. Currently, she denies urinary symptoms such as burning, dysuria, or hematuria, but does report some odorous vaginal discharge. The patient reports poor water intake, stating the last time she drank water was 18 months ago after her son was born, and she primarily drinks Powerade. She has difficulty drinking plain water as it causes nausea and vomiting, which is complicated by her gastroparesis, and also finds carbonated beverages difficult to tolerate due to her gastric pacemaker. [facility] Medical History depression Cervical cancer screening Type 2 diabetes mellitus with diabetic neuropathy, unspecified Anxiety Depression Fibromyalgia Asthma Surgical History History of tooth extraction History of exploratory laparotomy History of gastric surgery History of D&C History of appendectomy Family History Father No problems noted. Mother Heart problem Brother Autism Maternal Aunt Breast cancer Other Mental health disorder Social History Household Members: Significant Other Housing: House Alcohol intake: never Patient Tobacco Use Status: Former Tobacco user Tobacco use type: Smokeless Tobacco e-Cigarette/Vaping Use: Currently Using Frequency of e-Cigarette/Vaping Use: Daily Second Hand Smoke Exposure: Yes Substance Use Type: Marijuana service: No Current occupational status: unemployed and disabled Gender identity: Female Cognitive needs: No Hearing needs: No Vision needs: Yes Female Reproductive History Menstrual Age of Menarche: 16 Questionnaire Thrive Questionnaire Date Thrive assessed: 01/21/25 I am a: Patient What is your living situation today?: I have a steady place to live Within the past 12 months, did the food you bought not last and you didn't have the money to get more?: I choose not to answer this question Within the past 12 months, did you worry whether your food would run out before you got money to buy more?: I choose not to answer this question Do you have trouble paying for medicines?: I choose not to answer this question Do you have trouble getting transportation to medical appointments?: I choose not to answer this question Do you have trouble paying your heating and electricity bill?: I choose not to answer this question Do you have trouble taking care of your child, family member or friend?: I choose not to answer this question Do you have trouble with day-to-day activities such as bathing, preparing meals, shopping, managing finances, etc.?: I choose not to answer this question Are you currently unemployed and looking for a job?: I choose not to answer this question Are you interested in more education?: I choose not to answer this question Please select the resources that you would like help with: None Currently or been in a relationship where the following occur: I choose not to answer THRIVE Score: 0 CLEMENT-7 AMB Questionnaire CLEMENT-7 Date CLEMENT - 7 assessed: 09/23/24 Source: Developed by Drs. Evans Bose, Maye Byrd, Catracho Sullivan and colleagues, with an educational renny from [employer]. Review of Systems Const Denies body aches, Denies chills, Denies fever(s), Denies headache(s) and Denies poor appetite Eyes Reports no additional complaints ENT Denies dysphagia, Denies dizziness, Denies headache(s) and Denies odynophagia Card Denies chest pain, Denies syncope, Denies edema, Denies irregular heart rhythm, Denies lightheadedness and Denies dyspnea Resp Denies cough and Denies dyspnea GI Denies abdominal pain, Denies constipation, Denies dysphagia, Denies diarrhea, Denies nausea, Denies odynophagia and Denies vomiting Reports no additional complaints and Reports as per HPI Musc Reports no additional complaints and Denies abnormal gait Skin/Breast Reports system reviewed and no additional complaints, except as documented Neuro Denies abnormal gait, Denies dizziness, Denies syncope and Denies headache(s) Psych Reports no additional complaints Physical exam (Primary Care) Vital Signs: Last Vital Signs Temp 97.7 F 07/05/25 14:40 Pulse 90 07/05/25 14:40 BP 120/68 07/05/25 14:40 Pulse Ox 98 07/05/25 14:40 Oxygen Delivery Method Room Air 07/05/25 14:40 BMI result Body Mass Index 17.5 Tobacco/Smoking Status: Tobacco use Status Tobacco use date assessed 07/05/25 07/05/25 14:46 Patient Tobacco Use Status Former Tobacco user 07/05/25 14:39 Tobacco use type Smokeless Tobacco 07/05/25 14:39 e-Cigarette/Vaping Use Currently Using 07/05/25 14:39 Thrive Assessment: Date of Thrive Assessment Date Thrive assessed 01/21/25 07/05/25 14:39 Currently or been in a relationship where the following occur: I choose not to answer Const General: cooperative, healthy appearing, comfortable and no acute distress Orientation/consciousness: patient oriented x3 HENMT Head: Yes normocephalic Ears: hearing grossly normal bilaterally General nose exam: Normal external nose present Eyes General: appearance normal, both eyes and all related structures Conjunctivae: conjunctivae normal Neck Neck: Yes full ROM and Yes no lymphadenopathy Resp Effort & Inspection: normal respiratory effort Auscultation: clear to auscultation bilaterally, no crackles, no rales, no rhonchi and no wheezes Cardio Rate: regular rate Rhythm: regular rhythm General: Yes no CVA tenderness Back/Spine/Pelvis Other: no TTP to spine or paraspinal muscles. Neg SLR [place] Back: no CVA tenderness Skin General skin exam: no rashes or lesions noted Neuro General: patient oriented x3 Gait exam (Neuro): Normal gait present Extrem General: Yes normal to inspection, Yes full ROM and No edema Psych Affect: normal affect Attitude: cooperative Insight: Good insight present (Psych) Judgement: Good judgement present (Psych) Results AMB Test Urine AMB Test Urine Negative Last Edit by MIRLANDE Seo on 07/05/25 15:08 AMB Urinalysis, Automated UA Leukoctes 0 Janel/uL Last Edit by MIRLANDE Seo on 07/05/25 15:09 UA Nitrite Negative Last Edit by MIRLANDE Seo on 07/05/25 15:09 UA Urobilinogen 0 mg/dL Last Edit by Fred Villegas, RMA on 07/05/25 15:09 UA Protein 0 mg/dL Last Edit by Fred Villegas, RMA on 07/05/25 15:09 UA pH 8.0 Last Edit by Fred Villegas, RMA on 07/05/25 15:09 UA Blood 0 Brody/uL Last Edit by Fred Villegas, RMA on 07/05/25 15:09 UA Specific [place] 1.010 Last Edit by Fred Villegas, RMA on 07/05/25 15: 09 UA Ketone Negative Last Edit by Fred Villegas, RMA on 07/05/25 15:09 UA Bilirubin 0 mg/dL Last Edit by Fred Villegas, RMA on 07/05/25 15:09 UA Glucose 3 mg/dL Last Edit by Fred Villegas, A on 07/05/25 15:09 Results Reviewed Results Reviewed: Laboratory Last Values Urine pH (Auto) 8.0 07/05/25 15:04 Specific [place] (Auto) 1.010 07/05/25 15:04 Urine Protein (Auto) 0 mg/dL 07/05/25 15:04 Glucose (UA)(Auto) 3 mg/dL H* 07/05/25 15:04 Urine Ketones (Auto) Negative 07/05/25 15:04 Urine Blood (Auto) 0 Brody/uL 07/05/25 15:04 Urine Nitrite (Auto) Negative 07/05/25 15:04 Urine Bilirubin (Auto) 0 mg/dL 07/05/25 15:04 Urine Urobilinogen (Auto) 0 mg/dL 07/05/25 15:04 Leukocyte Esterase (Auto) 0 Janel/uL 07/05/25 15:04 Tst Clinic Negative 07/05/25 15:04 Coding Level of Care Code Est Pt Level 3 (21863) Diagnoses Right flank pain R10.A1 Assessment & Plan Assessment & Plan (1) Right flank pain: Code(s): R10.A1 - Flank pain, right side Category: Medical Plan: The patient presents with intermittent, worsening right flank pain, which is suspicious for nephrolithiasis, especially given her poor hydration. A urinalysis was negative for blood or infection, which makes an active obstructing stone less likely but does not rule out a non-obstructing stone. The differential diagnosis also includes musculoskeletal pain, although physical exam findings were not strongly suggestive of this. A kidney ultrasound will be ordered to evaluate for nephrolithiasis or other renal pathology. The patient was counseled to dramatically increase fluid intake, preferably water, to help flush the kidneys and prevent stone formation. She was given strict return precautions to go to the emergency department if the pain becomes constant or significantly worsens, as this could indicate an obstructing stone requiring urgent intervention. Plan This note was constructed using voice recognition software. While every effort has been made to ensure accuracy and cooker tender, still areas may have been included sometimes these areas may affect the content or meeting of the given symptoms. Total time spent caring for the patient today was 20 minutes. This includes time spent before the visit reviewing the chart, time spent during the visit, and time spent after the visit and documentation. Patient was informed and verbally consented to the use of an ambient scribe for clinic note documentation during this visit. Orders: Orders AMB HCG Urine Test Today Z32.02 - Encounter for test, result negative XR KUB Today R10.A1 - Flank pain, right side AMB Urinalysis Automated Today Z13.9 - Encounter for screening, unspecified US renal BI Today R10.A1 - Flank pain, right side
[2025-07-05 14:40] VITALS: BP 120/68; PULSE 90; TEMP 36.5; O2SAT 98; BMI 17.5
--- OUTSIDE RECORDS SUMMARY | 2025-07-05 20:53 | XMS_ITS | Clinical Summary ---
Author Organization [facility] Address [address] [place] [id number] Phone Care Team Providers Care Oil Mixer Name Role Phone Damaris Merrill MD Primary Care Provider Damaris Sebastian MD Unavailable Unavailable Damaris Merrill MD Unavailable Unavailable Social History Tobacco Use Types Packs/Day Years Used Date Smoking Tobacco: Never Assessed Comments Unknown Sex and Gender Information Value Date Recorded Sex Assigned at Not on file Legal Sex Female 9:47 PM EDT Gender Identity Not on file Sexual Orientation Not on file Plan of Treatment Not on file Care Teams Oil Mixer Relationship Specialty Start Date End Date Damaris Merrill MD PCP - General 08/05/12 Damaris Merrill MD PCP - Clinical PCP 08/05/12 Damaris Merrill MD PCP - Insurance PCP 08/05/12
== END 2025-07-05 15:38 | disposition home or self-care (01) ==
LOC: HO.HMCH 14:27
PROVIDERS: PCP Physician Assistant
DX: R10.A1 Flank pain, right side (principal); Z32.02 Encounter for pregnancy test, result negative; Z13.9 Encounter for screening, unspecified

== ENCOUNTER → 2025-07-05 14:27 | Outpatient (BNVA) | payer OTHER, SELFPAY | PROVIDERS: PCP Physician Assistant | DX: R10.A1 Flank pain, right side (principal); Z32.02 Encounter for pregnancy test, result negative; Z13.9 Encounter for screening, unspecified | CPT/HCPCS: 81003; 81025; 99212 ==